=== PATIENT | male | born 1975 | race Caucasian/White ===

== ENCOUNTER 2016-09-01 09:26 | Inpatient (IN) | payer SELFPAY ==
[~2016-09-01] VITALS: Ht 185.4 cm; Wt 89.3 kg
[~2016-09-01 09:26] MED LIST: HYDR-3533 PO
[2016-09-01 09:29] VITALS: BP 125/67; PULSE 89; RESP 18; TEMP 98.3; O2SAT 96
--- NOTE | 2016-09-01 10:16 | PD ---
HPI Chief Complaint: Psychiatric Symptoms Time Seen by Provider: 10:08 Travel History International Travel<30 days: No Contact w/Intl Traveler<30days: No Traveled to known affect area: No History of Present Illness HPI This patient comes to the ER for psychiatric evaluation. He says he has history of bipolar disorder. He says he doesn't feel well psychiatrically. He provides very little information. Some Questions he ignores while others he gives brief responses to. He does not voice any suicidal thoughts. He is not on any medication. He is homeless. Denies alcohol or drug abuse. Symptoms severity is moderate. No alleviating factors. Duration 3 days PFSH Past Medical History Cerebrovascular Accident: No Diabetes: Yes Patient Takes Glucophage: Yes Myocardial Infarction: No Social History Alcohol Use: No Tobacco Use: Yes (ppd) Substance Use: No Allergies-Medications (Allergen,Severity, Reaction): Coded Allergies: *MDRO Multi-Drug Resistant Organism (Unverified Adverse Reaction, Unknown , 09/01/16) MRSA (finger wound) - 08/2014 Reported Meds & Prescriptions Reported Meds & Active Scripts Active No Active Prescriptions or Reported Medications Review of Systems General / Constitutional: No: Fever Eyes: No: Visual changes HENT: No: Headaches Cardiovascular: No: Chest Pain or Discomfort Respiratory: No: Shortness of Breath Gastrointestinal: No: Abdominal Pain Genitourinary: No: Dysuria Musculoskeletal: No: Pain Skin: No Rash Neurologic: No: Weakness Psychiatric: Positive: Disorder of Thought, Mood Disorder, No: Depression Endocrine: No: Polydipsia Hematologic/Lymphatic: No: Easy Bruising Physical Exam Narrative GENERAL: Well-nourished, well-developed patient in no apparent distress. SKIN: Warm and dry. HEAD: Atraumatic. Normocephalic. EYES: Pupils equal and round. No scleral icterus. No injection or drainage. ENT: No nasal bleeding or discharge. Mucous membranes pink and moist. NECK: Trachea midline. No JVD. CARDIOVASCULAR: Regular rate and rhythm. No murmur appreciated. RESPIRATORY: No accessory muscle use. Clear to auscultation. Breath sounds equal bilaterally. GASTROINTESTINAL: Abdomen soft, non-tender, nondistended. Hepatic and splenic margins not palpable. MUSCULOSKELETAL: No obvious deformities. No clubbing. No cyanosis. No edema. NEUROLOGICAL: Awake and alert. No obvious cranial nerve deficits. Motor grossly within normal limits. Normal speech. PSYCHIATRIC: Depressed appearing mood and flat affect; insight and judgment seems weak. Data Data Last Documented VS Vital Signs Date Time Temp Pulse Resp B/P Pulse Ox O2 Delivery O2 Flow Rate FiO2 09/01/16 09:29 98.3 89 18 125/67 96 Room Air Orders Iv Access Insert/Monitor (09/01/16 10:11) Complete Blood Count With Diff (09/01/16 10:11) Basic Metabolic Panel (Bmp) (09/01/16 10:11) Alcohol (Ethanol) (09/01/16 10:11) Drug Screen, Random Urine (09/01/16 10:11) Psych Screen (09/01/16 10:11) Labs Laboratory Tests Test 09/01/16 09:45 White Blood Count 5.6 TH/MM3 Red Blood Count 4.39 MIL/MM3 Hemoglobin 13.9 GM/DL Hematocrit 40.3 % Mean Corpuscular Volume 91.7 FL Mean Corpuscular Hemoglobin 31.8 PG Mean Corpuscular Hemoglobin 34.6 % Concent Red Cell Distribution Width 13.5 % Platelet Count 297 TH/MM3 Mean Platelet Volume 7.6 FL Neutrophils (%) (Auto) 71.1 % Lymphocytes (%) (Auto) 20.7 % Monocytes (%) (Auto) 6.5 % Eosinophils (%) (Auto) 0.9 % Basophils (%) (Auto) 0.8 % Neutrophils # (Auto) 4.0 TH/MM3 Lymphocytes # (Auto) 1.2 TH/MM3 Monocytes # (Auto) 0.4 TH/MM3 Eosinophils # (Auto) 0.0 TH/MM3 Basophils # (Auto) 0.0 TH/MM3 CBC Comment DIFF FINAL Differential Comment Sodium Level 140 MEQ/L Potassium Level 3.8 MEQ/L Chloride Level 104 MEQ/L Carbon Dioxide Level 28.2 MEQ/L Anion Gap 8 MEQ/L Blood Urea Nitrogen 12 MG/DL Creatinine 0.91 MG/DL Estimat Glomerular Filtration 92 ML/MIN Rate Random Glucose 183 MG/DL Calcium Level 8.9 MG/DL Ethyl Alcohol Level LESS THAN 3 MG/DL MDM Medical Decision Making Medical Screen Exam Complete: Yes Emergency Medical Condition: Yes Medical Record Reviewed: Yes Differential Diagnosis Psychosis, depression, adjustment disorder Narrative Course I have reviewed the patient's electronic medical record. Patient desires psychiatric screening so I ordered psychiatric screening. I ordered a medical clearance workup. CBC is normal Metabolic profile is normal Toxicology screen is pending but won't globe changer Alcohol level is negative Patient is is medically stable as can be made. Disposition will be per psychiatry after screening Diagnosis Primary Impression: Bipolar 1 disorder, depressed Scripts No Active Prescriptions or Reported Meds Kushal Evans MD Sep 01, 2016 10:16
[2016-09-01 10:33] LABS: BASOPHIL % 0.8 % (0.0-2.0); EOSINOPHIL % 0.9 % (0.0-4.0); HEMATOCRIT 40.3 % (39.0-51.0); HEMO FLAGS DIFF FINAL; LYMPH % 20.7 % (9.0-44.0); LYMPHOCYTE # 1.2 TH/MM3 (1.0-4.8); MEAN CELL VOLUME 91.7 FL (80.0-100.0); MEAN CORPUSCULAR HEMOGLOBIN 31.8 PG (27.0-34.0); MEAN CORPUSCULAR HGB CONC 34.6 % (32.0-36.0); MONO % 6.5 % (0.0-8.0); NEUT % 71.1 % (16.0-70.0); PLATELET COUNT 297 TH/MM3 (150-450); RED BLOOD COUNT 4.39 MIL/MM3 (4.50-5.90); RED CELL DISTRIBUTION WIDTH 13.5 % (11.6-17.2); WHITE BLOOD COUNT 5.6 TH/MM3 (4.0-11.0)
[2016-09-01 10:53] LABS: ANION GAP 8 MEQ/L (5-15); BICARBONATE 28.2 MEQ/L (21.0-32.0); BLOOD UREA NITROGEN 12 MG/DL (7-18); CHLORIDE 104 MEQ/L (98-107); GLOMERULAR FILTRATION RATE 92 ML/MIN (>89); POTASSIUM 3.8 MEQ/L (3.5-5.1); SODIUM (NA) 140 MEQ/L (136-145)
[2016-09-01 12:33] VITALS: BP 130/76; PULSE 60; RESP 18; TEMP 97.5; O2SAT 98
[2016-09-01 14:38] LABS: AMPHETAMINE, URINE NEG (NEG); BARBITURATES, URINE NEG (NEG); COCAINE, URINE NEG (NEG)
[2016-09-01] MEDS ORDERED: MAGNESIUM HYDROXIDE SUSP 30 ML CUP PO PRN (16:30)
[2016-09-01] MEDS ORDERED: ALUMINUM/MAGNESIUM/SIMETH 30 ML CUP PO PRN (16:30)
[2016-09-01] MEDS ORDERED: LORazepam 2 MG/ML VIAL IM PRN (16:30)
[2016-09-01] MEDS ORDERED: DEXTROSE 50% IN WATER 50 ML VIAL(D50) IV PUSH PRN (16:30)
[2016-09-01] MEDS ORDERED: BENZTROPINE MESYLATE 1 MG TAB PO PRN (16:30)
[2016-09-01] MEDS ORDERED: ACETAMINOPHEN 325 MG TAB PO PRN (16:30)
[2016-09-01] MEDS ORDERED: BENZTROPINE MESYLATE 2 MG/2 ML VIAL IM PRN (16:30)
[2016-09-01] MEDS ORDERED: GLUCAGON 1 MG/ML VIAL OTHER PRN (16:30)
--- NOTE | 2016-09-01 16:33 | HHI.HP ---
Provisional Diagnosis Admission Date 09/01/2016 [place] I. 1. Other psychotic disorder Rule out primary psychotic disorder such as schizophrenia or schizoaffective disorder Rule out mood disorder with psychotic features Mes[place] II. Deferred [place] V. GAF is 30 presently Certification of Person's Competence To Provide Express and Informed Consent I have personally examined Danish Gates , a person being served at [facility] on, Sep 01, 2016 16:20. Express and informed consent means consent voluntarily given in writing, by a competent person, after sufficient explanation and disclosure of the subject matter involved to enable the person to make a knowing and willful decision without any element of force, fraud, deceit, duress, or other form of constraint or coercion. This person is 18 years of age or older, is not now known to be incompetent to consent to treatment with a guardian advocate, and does not have a health care surrogate or proxy currently making medical treatment decisions. I have found this person to be one of the following: [x] Competent to provide express and informed consent, as defined above, for voluntary admission to this facility and is competent to provide express and informed consent for treatment. He/she has the consistent capacity to make well reasoned, willful, and knowing decisions concerning his or her medical or mental health treatment. The person fully and consistently understands the purpose of the admission for examination/placement and is fully capable of personally exercising all rights assured under [place] [] Incompetent to provide express and informed consent to voluntary admission, and this is incompetent to provide express and informed consent to treatment. The person must be transferred to involuntary status and a petition for a guardian advocate filed with the Circuit Court. [] Refusing to provide express and informed consent to voluntary admission but is competent to provide express and informed consent for treatment. The person must be discharged or transferred to involuntary status. Form shall be completed within 24 hours of a person's arrival at the receiving facility and filed in the clinical record of each person: 1. Admitted on a voluntary basis 2. Permitted to provide express and informed consent to his/her own treatment 3. Allowed to transfer from involuntary to voluntary status 4. Prior to permitting a person to consent to his or her own treatment after having been previously found incompetent to consent to treatment. History of Present Illness Capacity: Has Capacity HPI Mr. Gates is a 41-year-old male with a reported history of bipolar disorder who presented voluntarily to the emergency department with complaints of feeling unwell psychiatrically. He was apparently a fairly vague historian for the ED provider. Reviewing the electronic medical record, I see no prior psychiatric contact within our system. Patient seen and examined. Case discussed with nurse in the J-pod. On my examination today, the patient is hypoverbal with slowed thought processes and significant thought blocking. He is fairly alexithymic and is unable to describe his current mood state. He is visibly internally preoccupied and seems to be mouthing words to himself. When I inquire about audiovisual hallucinations he says "I don't know." His eye contact is poor and he is fairly disheveled with dirty fingernails. He says "I'm definitely not thinking well." He denies suicidal or homicidal ideation but seems unreliable to contract for safety in his present state. I can elicit no delusional material including but not limited to paranoia, ideas of reference, thought insertion or withdrawal although he does seem somewhat guarded. Psychiatric interview is somewhat limited because of the patient's thought disorder. Past psychiatric history: Patient reports a history of bipolar disorder. He says that he has not taken psychotropic medications in years. He is not presently under the care of a psychiatrist. He is not sure if he has a history of psychiatric admissions. He says that he has not made a suicide attempt "in a long time." He cannot remember any previous psychotropic medication trials. Review of Systems ROS Limitations: Psychotic, Poor Historian Other Patient does not describe any physical symptoms at this time, but the ROS is limited because of his degree of thought disorder. Past Psych History Psychological trauma history No reported trauma history to me Violence risk - others (6 mos) Unclear but likely lower imminent risk. No known history of violence. Denies homicidal ideation. Violence risk - self (6 mos) Unclear. Concern for self-neglect because of degree of psychiatric decompensation. Patient does appear disheveled. Denies suicidal ideation but is likely unreliable to contract for safety in his present state. Substance Abuse History Drugs/Alcohol past 12 months Patient denies any history of abuse of drugs or alcohol. He says that he smokes "very seldom." Past Family Social History Coded Allergies: *MDRO Multi-Drug Resistant Organism (Unverified Adverse Reaction, Unknown , 09/01/16) MRSA (finger wound) - 08/2014 Past Medical History Patient reports a history of diabetes but says that he hasn't taken medications for this in some time No Active Prescriptions or Reported Meds Family History Patient is unable to provide saying "I'm not sure." Social History Patient unable to provide complete social history because of his degree of thought disorder. From what I can gather he is not presently residing with anyone. He is college educated and studies the [employer] arts. He is not presently working. When I inquire about whether he is on disability he says "I just don't work right now." He is unable to tell me about his marital history, or legal history or other details of his social history. Patient's Strengths (min. 2) In a monitored setting. Verbally fluent. Physical Exam A physical examination was completed in the emergency room by the ER staff and the patient was medically cleared. On my examination today, the patient appears to be in no acute physical distress. No abnormal motor movements noted. No posturing or stereotypies or other signs of catatonia. Steady gait and station. Labs and vital signs reviewed. Vital Signs Vital Signs Date Time Temp Pulse Resp B/P Pulse Ox O2 Delivery O2 Flow Rate FiO2 09/01/16 12:33 97.5 60 18 130/76 98 Room Air Lab Results Item Value Date Time White Blood Count 5.6 TH/MM3 09/01/16 0945 Hemoglobin 13.9 GM/DL 09/01/16 0945 Platelet Count 297 TH/MM3 09/01/16 0945 Sodium Level 140 MEQ/L 09/01/16 0945 Potassium Level 3.8 MEQ/L 09/01/16 0945 Chloride Level 104 MEQ/L 09/01/16 0945 Carbon Dioxide Level 28.2 MEQ/L 09/01/16 0945 Blood Urea Nitrogen 12 MG/DL 09/01/16 0945 Creatinine 0.91 MG/DL 09/01/16 0945 Random Glucose 183 MG/DL H 09/01/16 0945 Urine toxicology and alcohol level negative. Mental Status Examination Patient is in hospital gown. He is somewhat disheveled. He is awake and alert and oriented to person and hospital at least. No abnormal motor movements noted. Speech is slow and halting. Language and fund of knowledge are somewhat difficult to assess but seem at least adequate for age. Patient is unable to describe his mood state and his affect seems fairly flat. Thought process extremely slowed with thought blocking. No mary delusional material. Patient is unsure if he is experiencing audiovisual hallucinations but appears internally preoccupied. He denies suicidal or homicidal ideation but is unreliable to contract for safety in his present state. Insight and judgment are unclear at present. Assessment & Plan Problem List: (1) Psychosis ICD Code: F29 Assessment & Plan This is a 41-year-old male with psychiatric history as detailed above who presents on a voluntary basis to the ED for psychiatric complaints. On my examination today, patient presents with primarily thought disorder symptoms. He has significant thought blocking. He is alexithymic. Although the patient reports a history of bipolar illness, patient's current symptomatology seems more consistent with a primary psychotic disorder. In any event, he has not been on psychotropic medications in some time per his report. He is fairly disheveled and I am concerned that he has not been taking care of himself and so I believe require psychiatric admission at this time for safety, observation and stabilization. --Admit inpatient --Voluntary status --Check a set of LFTs along with a hemoglobin A1c and lipid panel in the morning --For the management of psychotic symptoms, initiate Risperdal 0.5 mg twice daily with plans to titrate. I did discuss the patient's therapeutic options with him at a level appropriate for his degree of present psychiatric impairment. To consider long-acting injectable antipsychotic if adherence seems to be an issue. --Ativan as needed for anxiety, Cogentin as needed for EPS, Benadryl as needed for sleep. --Patient's glucose was somewhat elevated in a nonfasting sample. I will initiate twice daily Accu-Cheks with sliding scale. Diabetic diet. If the hemoglobin A1c is elevated suggestive of ongoing problems with diabetes, we could consider a consult to the hospitalist for management of this problem. --Vitals every shift --Counselor to see and obtain collateral --Disposition planning --Estimated length of stay: 7-9 days Discharge Planning Pending psychiatric stabilization Request HC Surrog/Guard Advoc?: No Problem Qualifiers (1) Psychosis: Qualified Code: F28 - Other psychotic disorder not due to substance or known physiological condition Cholo Delaney MD Sep 01, 2016 16:33
[2016-09-01 16:45] VITALS: BP 130/76
[2016-09-01 20:00] VITALS: BP 117/70; PULSE 59; RESP 18; TEMP 98; O2SAT 100
[2016-09-01] MEDS: LORazepam 1 MG TAB PO PRN (20:32)
[2016-09-01] MEDS: risperiDONE 0.5 MG TAB PO SCH (20:32)
[2016-09-02 06:08] VITALS: BP 118/61; PULSE 65; RESP 18; TEMP 97.7; O2SAT 100
[2016-09-02] MEDS: INSULIN ASPART SUPPLEMENTAL SCALE SQ SCH ×2 (07:00→16:00)
[2016-09-02 08:08] LABS: ALT (GPT) 22 U/L (12-78); AST (GOT) 13 U/L (15-37)
[2016-09-02 08:17] LABS: ALKALINE PHOSPHATASE 70 U/L (45-117); HDL CHOLESTEROL 52.7 MG/DL (40.0-60.0); INDIRECT BILIRUBIN 0.3 MG/DL (0.0-0.8); LDL CHOLESTEROL 62 MG/DL (0-99); TOTAL BILIRUBIN ADULT 0.4 MG/DL (0.2-1.0)
[2016-09-02] MEDS: risperiDONE 0.5 MG TAB PO SCH (09:00)
[2016-09-02] MEDS: REMOVE OLD NICODERM (NICOTINE) PATCH TD SCH (09:00)
[2016-09-02] MEDS: NICOTINE 21 MG/24 HR PATCH T-DERMAL SCH (09:00)
--- NOTE | 2016-09-02 09:52 | HHI.PYPN ---
Subjective Remarks Patient seen and examined with counselor Anita and nursing staff. Chart reviewed. Case discussed with nursing staff. On my examination today, the patient has ongoing thoughts slowing and thought blocking. He does have some improved affective reactivity but remains overall quite flat. He is vague in response to questioning. The most I can get out of him is that "it seems like him having trouble putting my thoughts together." He denies any SI, HI or AVH. Denies side effects from medications. Agreeable to titrating his Risperdal. Review of Systems ROS Limitations: Poor Historian Other No physical complaints today Objective Alert: Yes [place]: Person, Place Mood: Calm Affect: Flat Memory Intact: Comment (not formally assessed) Hallucinations: Other (denies AVH) Delusions: No Delusion Type: Other (no mary delusions) Suicidal: Ideation (denies SI) Homicidal: Ideation (denies HI) Insight/Judgement Fair Remarks Thought disorder as noted above. No motoric abnormalities noted. Speech is slow and monotone. Labs Test 09/01/16 09/02/16 09/02/16 14:09 00:01 07:12 Urine Opiates Screen NEG Urine Barbiturates Screen NEG Urine Amphetamines Screen NEG Urine Benzodiazepines Screen NEG Urine Cocaine Screen NEG Urine Cannabinoids Screen NEG Random Glucose 129 MG/DL Total Bilirubin 0.4 MG/DL Direct Bilirubin 0.1 MG/DL Indirect Bilirubin 0.3 MG/DL Aspartate Amino Transf 13 U/L (AST/SGOT) Alanine Aminotransferase 22 U/L (ALT/SGPT) Alkaline Phosphatase 70 U/L Total Protein 6.5 GM/DL Albumin 3.3 GM/DL Triglycerides Level 52 MG/DL Cholesterol Level 125 MG/DL LDL Cholesterol 62 MG/DL HDL Cholesterol 52.7 MG/DL Cholesterol/HDL Ratio 2.37 RATIO Thyroid Stimulating Hormone 0.666 uIU/ML 3rd Gen Labs reviewed. LFTs unremarkable. TSH within normal limits. Hemoglobin A1c is pending but bedside glucose this morning was not significantly elevated. Vitals/IOs Vital Signs Date Time Temp Pulse Resp B/P Pulse Ox O2 Delivery O2 Flow Rate FiO2 09/02/16 06:08 97.7 65 18 118/61 100 09/01/16 12:33 Room Air Assessment & Plan Problem List: (1) Psychosis ICD Code: F29 Assessment & Plan Titrate Risperdal to target ongoing thought disorder. Awaiting hemoglobin A1c and continue Accu-Cheks and sliding scale. Continue other medications and care as ordered. Justification for Cont. Inpt. Medication changes requiring monitoring. Discharge Planning Pending psychiatric stabilization Request HC Surrog/Guard Advoc?: No Problem Qualifiers (1) Psychosis: Qualified Code: F28 - Other psychotic disorder not due to substance or known physiological condition Cholo Delaney MD Sep 02, 2016 09:52
[2016-09-02 13:38] LABS: HEMOGLOBIN A1b 0.7 %; HEMOGLOBIN Ao 85.8 %; HEMOGLOBIN P3 3.5 %
[2016-09-02 13:47] LABS: HEMOGLOBIN A1b 0.7 %; HEMOGLOBIN F 0.9 %; HEMOGLOBIN LA1C 1.9 %; HEMOGLOBIN P3 3.5 %
[2016-09-02 18:00] VITALS: BP 119/69; PULSE 94; RESP 18; TEMP 98.4; O2SAT 98
[2016-09-02] MEDS: risperiDONE 1 MG TAB PO SCH (20:42)
[2016-09-03 05:53] VITALS: BP 115/65; PULSE 92; RESP 18; TEMP 98.4; O2SAT 98
[2016-09-03] MEDS: risperiDONE 1 MG TAB PO SCH ×2 (08:56→21:16)
[2016-09-03] MEDS: NICOTINE 21 MG/24 HR PATCH T-DERMAL SCH (08:56)
[2016-09-03] MEDS: REMOVE OLD NICODERM (NICOTINE) PATCH TD SCH (08:57)
--- NOTE | 2016-09-03 11:57 | HHI.PYPN ---
Subjective Remarks Patient seen and examined with counselor Anita. Chart reviewed. Case discussed with nursing staff who reports patient continues to display thought blocking. On my examination today, patient presents as quite ambivalent. He doesn't know if he should stay or leave from the hospital. He continues to have significant thought disorder and thought blocking. He continues to feel like "I don't think I'm thinking well." He alludes to experiencing audiovisual hallucinations but notes "I'm scared to say anything about that because I don't want to think I'm crazy and I don't want you to think I'm crazy." He denies side effects from medications. Review of Systems ROS Limitations: Psychotic, Poor Historian Other No reported physical complaints today Objective Alert: Yes [place]: Person, Place Mood: Anxious Affect: Blunted Memory Intact: Comment (not formally assessed) Hallucinations: Other (alludes to some sort of audiovisual hallucinations but won't describe them in detail.) Delusions: No Delusion Type: Other (no mary delusions) Suicidal: Ideation (no SI) Homicidal: Ideation (no HI) Insight/Judgement Fair at best Remarks No hand tremor, no dystonia, no dyskinesia noted. Speech somewhat halting secondary to underlying thought disorder most likely. Labs Test 09/02/16 12:06 Nasal Screen MRSA (PCR) NEGATIVE Labs reviewed. Vitals/IOs Vital Signs Date Time Temp Pulse Resp B/P Pulse Ox O2 Delivery O2 Flow Rate FiO2 09/03/16 05:53 98.4 92 18 115/65 98 09/01/16 12:33 Room Air Intake and Output 09/02/16 09/02/16 09/03/16 08:00 16:00 00:00 Intake Total 360 ml Balance 360 ml Assessment & Plan Problem List: (1) Psychosis ICD Code: F29 Assessment & Plan I detect some signs of improvement patient's clinical condition and that his affect seems somewhat more reactive. He is also somewhat more conversant about his symptoms. I will titrate his Risperdal to target ongoing symptoms of psychosis, which remain significant. Continue other medications and care as ordered. Justification for Cont. Inpt. Ongoing impairments in reality testing. Medication changes requiring monitoring. Risk for decompensation in a less restrictive environment. Discharge Planning Pending psychiatric stabilization Request HC Surrog/Guard Advoc?: No Problem Qualifiers (1) Psychosis: Qualified Code: F28 - Other psychotic disorder not due to substance or known physiological condition Cholo Delaney MD Sep 03, 2016 11:57
[2016-09-03 19:31] VITALS: BP 105/61; PULSE 86; RESP 18; TEMP 98.3; O2SAT 99
[2016-09-03] MEDS: risperiDONE 0.5 MG TAB PO SCH (21:16)
[2016-09-03] MEDS: LORazepam 1 MG TAB PO PRN (21:17)
[2016-09-04 06:01] VITALS: BP 122/77; PULSE 89; RESP 18; TEMP 97.8; O2SAT 100
[2016-09-04] MEDS: risperiDONE 0.5 MG TAB PO SCH ×2 (09:00→21:02)
[2016-09-04] MEDS: risperiDONE 1 MG TAB PO SCH ×2 (09:00→21:02)
[2016-09-04] MEDS: REMOVE OLD NICODERM (NICOTINE) PATCH TD SCH (09:00)
[2016-09-04] MEDS: NICOTINE 21 MG/24 HR PATCH T-DERMAL SCH (09:00)
--- NOTE | 2016-09-04 11:17 | HHI.PYPN ---
Subjective Remarks Patient seen and examined with nurse and counselor. Chart reviewed. Case discussed with nursing staff. On my examination today, the patient seems to be better groomed than in previous days. His thought process seems more linear with less thought blocking although there still some present. Patient himself feels improved and notes that the medication is "good for my heart, body, mind and soul." Denies SI/HI. Still fairly ambivalent about remaining on the unit but agrees finally to stay the weekend. Denies side effects from meds. Review of Systems Other No physical complaints today. Objective Alert: Yes [place]: Person, Place Mood: Calm Affect: Blunted (more reactive) Memory Intact: Comment (not formally assessed) Hallucinations: Other (Denies AVH) Delusions: Yes Delusion Type: Other (possibly some feelings of thought insertion) Suicidal: Ideation (denies SI) Homicidal: Ideation (Denies HI) Insight/Judgement Fair Remarks No motoric abnormalities noted. Labs Labs reviewed. No new labs. Vitals/IOs Vital Signs Date Time Temp Pulse Resp B/P Pulse Ox O2 Delivery O2 Flow Rate FiO2 09/04/16 06:01 97.8 89 18 122/77 100 09/01/16 12:33 Room Air Assessment & Plan Problem List: (1) Psychosis ICD Code: F29 Assessment & Plan Patient seems to be improving with Risperdal. Continue Risperdal as ordered for now. I will plan to titrate over the weekend most likely. We discussed a long-acting injectable like Risperdal Consta, but the patient is little ambivalent about this. I'll revisit this with him. Continue other medications and care as ordered. Justification for Cont. Inpt. Ongoing impairments in reality construction. Medication changes. Discharge Planning Monitor over the weekend Request HC Surrog/Guard Advoc?: No Problem Qualifiers (1) Psychosis: Qualified Code: F28 - Other psychotic disorder not due to substance or known physiological condition Cholo Delaney MD Sep 04, 2016 11:17
[2016-09-04 20:26] VITALS: BP 110/63; PULSE 87; RESP 18; TEMP 98.1; O2SAT 98
[2016-09-04] MEDS: LORazepam 1 MG TAB PO PRN (21:06)
[2016-09-05 06:10] VITALS: BP 116/61; PULSE 114; RESP 20; TEMP 97.2; O2SAT 98
[2016-09-05] MEDS: REMOVE OLD NICODERM (NICOTINE) PATCH TD SCH (09:00)
[2016-09-05] MEDS: NICOTINE 21 MG/24 HR PATCH T-DERMAL SCH (09:00)
[2016-09-05] MEDS: risperiDONE 1 MG TAB PO SCH ×2 (09:24→20:07)
[2016-09-05] MEDS: risperiDONE 0.5 MG TAB PO SCH (09:24)
--- NOTE | 2016-09-05 16:28 | HHI.PYPN ---
Subjective Remarks Patient seen and examined with nursing staff. Chart reviewed. Case discussed with nursing staff who reports patient is somewhat vague and guarded. On my examination today, the patient seems more linear in his thought process. His thought blocking is significantly attenuated. He denies any SI or HI. He denies any side effects from medications but remains ambivalent about a long- acting injectable antipsychotic. No other issues noted. Review of Systems Other No physical complaints today. In particular denies any chest pain, shortness of breath or palpitations associated with his reported tachycardia. Objective Alert: Yes [place]: Person, Place Mood: Calm Affect: Other (more full and reactive today) Memory Intact: Comment (seems intact on clinical exam) Hallucinations: Other (Denies AVH) Delusions: No Delusion Type: Other (no evident delusional material today) Suicidal: Ideation (denies SI) Homicidal: Ideation (denies HI) Insight/Judgement Fair Remarks No abnormal motor movements noted. Thought process improved as noted above. Speech still little bit halting but otherwise within normal limits for rate, tone and volume. Labs Test 09/04/16 17:10 Nasal Screen MRSA (PCR) NEGATIVE Labs reviewed. Vitals/IOs Vital Signs Date Time Temp Pulse Resp B/P Pulse Ox O2 Delivery O2 Flow Rate FiO2 09/05/16 06:10 97.2 114 20 116/61 98 09/01/16 12:33 Room Air Assessment & Plan Problem List: (1) Psychosis ICD Code: F29 Assessment & Plan Titrate Risperdal to target residual psychotic symptoms. Check an EKG for his tachycardia. Continue other medications as ordered. Continue other care as ordered. Justification for Cont. Inpt. Risk for decompensation pending psychiatric stabilization. Discharge Planning Monitor over the weekend. Discharge beginning of next week? Request HC Surrog/Guard Advoc?: No Problem Qualifiers (1) Psychosis: Qualified Code: F28 - Other psychotic disorder not due to substance or known physiological condition Cholo Delaney MD Sep 05, 2016 16:28
[2016-09-05 19:24] VITALS: BP 121/65; PULSE 88; RESP 18; O2SAT 99
[2016-09-05] MEDS: LORazepam 1 MG TAB PO PRN (22:31)
[2016-09-05] MEDS: diphenhydrAMINE HCL 50 MG CAP PO PRN (22:31)
[2016-09-06 05:36] VITALS: BP 138/55; PULSE 105; RESP 17; TEMP 97.7; O2SAT 98
[2016-09-06] MEDS: risperiDONE 1 MG TAB PO SCH ×2 (08:57→21:44)
[2016-09-06] MEDS: NICOTINE 21 MG/24 HR PATCH T-DERMAL SCH (08:58)
[2016-09-06] MEDS: REMOVE OLD NICODERM (NICOTINE) PATCH TD SCH (08:58)
[2016-09-06] MEDS ORDERED: risperiDONE EXT REL INJ 25 MG/2 ML VIAL IM ONE (09:45)
--- NOTE | 2016-09-06 09:49 | HHI.PYPN ---
Subjective Remarks Patient seen and examined with nursing staff. Chart reviewed. Case discussed with nursing staff who reports patient was punching a pillow overnight and received some Ativan as needed with good effect. On my examination today, the patient is calm and pleasant. He says he is "feeling real good, thank you." He does admit to "little bit of anger" overnight but notes that he was "just trying to think for myself." Denies SI or HI. Denies side effects from medications. Remains ambivalent about Risperdal Consta but will consider it. Review of Systems Other No reported physical complaints today Objective Alert: Yes [place]: Person, Place Mood: Calm Affect: Other (fairly full and reactive today) Memory Intact: Comment (intact) Hallucinations: Other (no AVH reported) Delusions: No Delusion Type: Other (no delusions) Suicidal: Ideation (no SI) Homicidal: Ideation (no HI) Insight/Judgement Fair Remarks No hand tremor, no cogwheeling, no dystonias or dyskinesias noted. Thought processes fairly linear today with no real thought blocking that I can discern. Speech is much more fluid and seamless in conversation. Labs Labs reviewed. No new labs. Vitals/IOs Vital Signs Date Time Temp Pulse Resp B/P Pulse Ox O2 Delivery O2 Flow Rate FiO2 09/06/16 05:36 97.7 105 17 138/55 98 Assessment & Plan Problem List: (1) Psychosis ICD Code: F29 Assessment & Plan Offer the patient long-acting injectable Risperdal today. I have explained that he will need to continue to take oral Risperdal for 3 weeks while the injectable takes effect if he decides to excepted. Continue oral Risperdal as ordered. Continue other medications and care as ordered. Justification for Cont. Inpt. Discharge planning. Discharge Planning Monitor overnight Request HC Surrog/Guard Advoc?: No Problem Qualifiers (1) Psychosis: Qualified Code: F28 - Other psychotic disorder not due to substance or known physiological condition Cholo Delaney MD Sep 06, 2016 09:49
--- NOTE | 2016-09-06 13:10 | EKG ---
Date Performed: 09/05/2016 Time Performed: 17:10:21 PTAGE: 41 years EKG: Sinus rhythm INCOMPLETE RIGHT BUNDLE BRANCH BLOCK BORDERLINE ECG NO PREVIOUS TRACING DOCTOR: Ellen Omalley Interpretating Date/Time 09/06/2016 13:08:08
[2016-09-06 19:38] VITALS: BP 112/67; PULSE 94; RESP 18; TEMP 98.9; O2SAT 99
[2016-09-06] MEDS: LORazepam 1 MG TAB PO PRN (22:28)
[2016-09-06] MEDS: diphenhydrAMINE HCL 50 MG CAP PO PRN (22:28)
[2016-09-07 06:12] VITALS: BP 129/76; PULSE 118; RESP 16; TEMP 97.6; O2SAT 98
[2016-09-07] MEDS: risperiDONE 1 MG TAB PO SCH (08:41)
[2016-09-07] MEDS: NICOTINE 21 MG/24 HR PATCH T-DERMAL SCH (08:41)
[2016-09-07] MEDS: REMOVE OLD NICODERM (NICOTINE) PATCH TD SCH (08:41)
[2016-09-07] MEDS ORDERED: RISP25P IM (10:31)
[2016-09-07] MEDS ORDERED: RISP2TAB37 PO (10:31)
--- NOTE | 2016-09-07 10:31 | HHI.DS ---
Psychiatry Discharge Summary Inpatient Psychiatric care?: Yes Advance Directive: No Reason Not Provided: DECLINED Mental Health AdvanceDirective: No Health Care Proxy: No Admission Admission Date Sep 01, 2016 at 16:17 Admission Diagnosis: (1) Psychosis ICD Code: F29 GAF Score: 30 Brief History Mr. Gates is a 41-year-old male with a reported history of bipolar disorder who presented voluntarily to the emergency department with complaints of feeling unwell psychiatrically. He was apparently a fairly vague historian for the ED provider. Reviewing the electronic medical record, I see no prior psychiatric contact within our system. Patient seen and examined. Case discussed with nurse in the J-pod. On my examination today, the patient is hypoverbal with slowed thought processes and significant thought blocking. He is fairly alexithymic and is unable to describe his current mood state. He is visibly internally preoccupied and seems to be mouthing words to himself. When I inquire about audiovisual hallucinations he says "I don't know." His eye contact is poor and he is fairly disheveled with dirty fingernails. He says "I'm definitely not thinking well." He denies suicidal or homicidal ideation but seems unreliable to contract for safety in his present state. I can elicit no delusional material including but not limited to paranoia, ideas of reference, thought insertion or withdrawal although he does seem somewhat guarded. Psychiatric interview is somewhat limited because of the patient's thought disorder. Past psychiatric history: Patient reports a history of bipolar disorder. He says that he has not taken psychotropic medications in years. He is not presently under the care of a psychiatrist. He is not sure if he has a history of psychiatric admissions. He says that he has not made a suicide attempt "in a long time." He cannot remember any previous psychotropic medication trials. Tobacco Use In Past 30 Days: 5 or More Cigarettes/Day Alcohol Use: Monthly or Less Hospital Course Patient was admitted to a locked, inpatient psychiatric unit. Appropriate precautions were in place throughout patient's hospital stay. Patient was seen and examined daily on the unit by psychiatry and also visited by counselor. Medications were adjusted. Patient tolerated medications well without side effects. Patient was started on long-acting injectable Risperdal Consta. Patient had significant improvement in his presenting psychiatric symptomatology. There was no evidence of any suicidality or homicidality on the inpatient unit. Patient remained in good behavioral control and was compliant with medications. On the day of discharge: Case discussed with nursing staff. No problematic behaviors to report. On my examination today, the patient's thought process is more or less completely linear with no residual thought blocking. He is requesting discharge from the inpatient psychiatric unit today. He denies any suicidal or homicidal ideation. He denies any audiovisual hallucinations, nor can I elicit any delusional beliefs. He denies any side effects from medications. I review with him the need for temporary oral supplementation of his Risperdal Consta with teach back to ensure that he understands his medication regimen. He denies any physical complaints. Weighing the acute, chronic, and protective factors and based on the available evidence, I metal sander to a reasonable degree of medical certainty that the patient is at low imminent risk of harm to self or others from a mental illness as defined under the Bro act and his level of function is adequate for outpatient care. Patient has maximized benefit from this inpatient psychiatric hospital stay. He will be discharged today in stable condition with psychiatric follow-up as arranged by counselor. Patient is also to follow-up with primary care. I have counseled the patient regarding warning signs for need to return to the psychiatric emergency room as part of the general safety plan. Results Blood Pressure 129 / 76 Vital Signs Date Time Temp Pulse Resp B/P Pulse Ox O2 Delivery O2 Flow Rate FiO2 09/07/16 06:12 97.6 118 16 129/76 98 Item Value Date Time White Blood Count 5.6 TH/MM3 09/01/16 0945 Hemoglobin 13.9 GM/DL 09/01/16 0945 Platelet Count 297 TH/MM3 09/01/16 0945 Sodium Level 140 MEQ/L 09/01/16 0945 Potassium Level 3.8 MEQ/L 09/01/16 0945 Chloride Level 104 MEQ/L 09/01/16 0945 Carbon Dioxide Level 28.2 MEQ/L 09/01/16 0945 Blood Urea Nitrogen 12 MG/DL 09/01/16 0945 Creatinine 0.91 MG/DL 09/01/16 0945 Hemoglobin A1c 5.6 % 09/02/16 0712 Aspartate Amino Transf (AST/SGOT) 13 U/L L 09/02/16 0712 Alanine Aminotransferase (ALT/SGPT) 22 U/L 09/02/16 0712 Alkaline Phosphatase 70 U/L 09/02/16 0712 Thyroid Stimulating Hormone 3rd Gen 0.666 uIU/ML 09/02/16 0712 Urine Opiates Screen NEG 09/01/16 1409 Urine Barbiturates Screen NEG 09/01/16 1409 Urine Amphetamines Screen NEG 09/01/16 1409 Urine Benzodiazepines Screen NEG 09/01/16 1409 Urine Cocaine Screen NEG 09/01/16 1409 Urine Cannabinoids Screen NEG 09/01/16 1409 Ethyl Alcohol Level LESS THAN 3 MG/DL 09/01/16 0945 Summary of Procedures None done Imaging None done Pending results at discharge: No Medications # of Antipsychotic meds at D/C: 1 Approp Antipsych med options 1 - Minimum of three failed multiple trials of monotherapy. 2 - Documented plan to taper to monotherapy due to previous use of multiple meds OR cross-taper in progress at D/C. 3 - Documentation of augmentation of Clozapine. 4 - Justification other than those listed in allowable values 1-3, document here : Discharge Discharge Date: Sep 07, 2016 Discharge Diagnosis: (1) Psychosis Diagnosis: Principal (stable) ICD Code: F29 GAF on discharge is 60 Mental Status Exam at Disch Patient is casually dressed. He is well groomed. He is awake and alert and oriented 3. No motoric abnormalities noted. No hand tremor, no dystonia, no dyskinesia noted. Speech is within normal limits for rate, tone and volume. Language and fund of knowledge seem adequate and appropriate for age. Mood is fair and affect is somewhat blunted. Thought process linear. No loosening of associations. No evident delusions. Denies audiovisual hallucinations. Denies suicidal or homicidal ideation. Insight and judgment are fair. Pt Condition on Discharge: Stable Discharge Disposition: Discharge Home Discharge Instructions Diet Instructions: As Tolerated, No Restrictions Activities you can perform: Weight Bearing as Rd Scheduled Appointment: Sree Martini Appointment Date: Sep 11, 2016 Appointment Time: 7:30am. New Medications: Risperidone (Risperdal) 2 Mg Tab 2 MG PO BID Take oral Risperdal until you finish this prescription, then stop. Be sure to get your next Risperdal Consta injection as ordered. Mental Health Days 20 Ref 0 TAB Risperidone Inj (Risperdal Consta Inj) 25 Mg Inj 25 MG IM Q14D Next dose of Risperdal Consta due on 1/15/17. Mental Health #1 Ref 0 VIAL Discharge Time <= 30 minutes Discharge/Advance Care Plan Health Problems: (1) Psychosis Goals to promote your health * To prevent worsening of your condition and complications * To maintain your health at the optimal level Directions to meet your goals Take your medications as prescribed Follow your dietary instruction Follow activity as directed Keep your appointments as scheduled Take your immunizations and boosters as scheduled If your symptoms worsen call your PCP, if no PCP go to Urgent Care Center or Emergency Room For 29/03 questions related to your inpatient stay or results of tests pending at discharge, please contact Dr. Cholo Delaney at Smoking is Dangerous to Your Health. Avoid second hand smoking Problem Qualifiers (1) Psychosis: Qualified Code: F28 - Other psychotic disorder not due to substance or known physiological condition Cholo Delaney MD Sep 07, 2016 10:31
[2016-09-07 10:54] VITALS: BP 99/50; PULSE 86
[2016-11-17] MEDS ORDERED: LORazepam 1 MG TAB PO PRN (10:00)
[2016-11-17] MEDS ORDERED: ACETAMINOPHEN 325 MG TAB PO PRN (10:00)
[2016-11-17] MEDS ORDERED: diphenhydrAMINE HCL 50 MG CAP PO PRN (10:00)
[2016-11-17] MEDS ORDERED: risperiDONE 1 MG TAB PO SCH (21:00)
[2016-11-18] MEDS ORDERED: NICOTINE 21 MG/24 HR PATCH T-DERMAL SCH (09:00)
[2016-11-18] MEDS ORDERED: REMOVE OLD PATCH T-DERMAL SCH (09:00)
== END 2016-09-07 12:00 | disposition home or self-care (01) | DRG 885 ==
LOC: NEPE 09:26 → NEDA 16:17 → H270 17:08
PROVIDERS: ADMIT Psychiatry & Neurology Psychiatry; ATTEND Psychiatry & Neurology Psychiatry
DX: F29 Unspecified psychosis not due to a substance or known physiological condition (principal); E11.9 Type 2 diabetes mellitus without complications; F31.9 Bipolar disorder, unspecified; F17.200 Nicotine dependence, unspecified, uncomplicated; Z59.0 Homelessness
CPT/HCPCS: 80048; 80061; 80076; 80301; 80320; 82947; 82948; 83036; 84443; 85025; 87641; 93005; 99284; G0479; J2794; Q0163

== ENCOUNTER 2016-09-08 15:07 | Observation (INO) | payer SELFPAY ==
[~2016-09-08] VITALS: Ht 188 cm; Wt 90.0 kg
[~2016-09-08 15:07] MED LIST changes: -HYDR-3533 PO; +RISP25P IM; +RISP2TAB37 PO
[2016-09-08 15:13] VITALS: BP 147/83; PULSE 108; RESP 14; TEMP 98.1; O2SAT 96
[2016-09-08] MEDS ORDERED: SODIUM CHLORIDE 0.9% FLUSH 5 ML FLUSH IVF PRN (22:00)
[2016-09-08] MEDS ORDERED: SODIUM CHLORID 0.9% 500 ML INJ 500 ML IV ONE ×2 (22:00→22:45)
[2016-09-08 22:08] VITALS: BP 136/84; PULSE 83; PULSE 85; RESP 16; O2SAT 99
--- NOTE | 2016-09-08 22:08 | PD ---
HPI Chief Complaint: Cardiac Complaint Time Seen by Provider: 21:47 Travel History International Travel<30 days: No Contact w/Intl Traveler<30days: No Traveled to known affect area: No History of Present Illness HPI The patient is 41 year old male who presents to the [facility] emergency department with a history of reported chest pain and bilateral biceps pain that began a week ago and has been coming and going. He reports that it makes him feel shaky. He reports "my heart feels like it is not doing well". He reports that he is homeless. He reports that being homeless and staying outside makes his thoughts race and he feels anxious. The patient has a history recently being admitted to the psychiatric service at the end of August with a diagnosis of bipolar disorder. The patient was discharged with a prescription for risperidone. He reports that he does not know where that prescription is. The patient denies taking any medications at all at this time. The patient does have a history of diabetes mellitus as well. He denies having a primary care physician. He denies any prior history of hypertension, hyperlipidemia. He reports that he smokes less than a half a pack of cigarettes per day. He denies any illicit drug use. He denies any prior history of myocardial infarction, congestive heart failure, DVT or PE. The patient reports that the chest pain and arm pain occur together. He reports that he had shortness of breath associated with this. The patient denies any recent fevers, cough, congestion, neck pain, abdominal pain, vomiting, diarrhea, urinary symptoms, or neurologic symptoms. The patient denies any suicidal or homicidal ideations. [facility] Past Medical History Narrative Medical The patient's past medical history is significant for diabetes mellitus, tobacco abuse, bipolar disorder Anxiety: No Depression: No Cerebrovascular Accident: No Endocrine: Yes Genitourinary: No Immune Disorder: No Musculoskeletal: No Neurologic: No Reproductive: No Respiratory: No Myocardial Infarction: No Past Surgical History Narrative Surgical The patient denies any past surgical history. Social History Alcohol Use: No Tobacco Use: Yes (less than one half pack per day.) Substance Use: No Allergies-Medications (Allergen,Severity, Reaction): Coded Allergies: *MDRO Multi-Drug Resistant Organism (Unverified Adverse Reaction, Unknown , Cleared, 09/08/16) MRSA (finger wound) - 08/31/14 MRSA screen negative - 09/02/16 & 09/04/16 Cleared per Infection Control Reported Meds & Prescriptions Reported Meds & Active Scripts Active No Active Prescriptions or Reported Medications Review of Systems General / Constitutional: No: Fever Eyes: No: Visual changes HENT: No: Headaches, Rhinorrhea, Nosebleed Cardiovascular: Positive: Chest Pain or Discomfort, Dyspnea on exertion Respiratory: Positive: Shortness of Breath Gastrointestinal: No: Nausea, Vomiting, Diarrhea, Abdominal Pain Genitourinary: No: Dysuria Musculoskeletal: No: Pain Skin: No Rash Neurologic: No: Weakness, Focal Abnormalities, Change in Mentation, Slurred Speech, Sensory Disturbance Psychiatric: Positive: Anxiety, Disorder of Thought, Mood Disorder, No: Depression, Suicidal Ideations, Substance Abuse, Homicidal Ideation Endocrine: No: Polydipsia Hematologic/Lymphatic: No: Easy Bruising Physical Exam Narrative General: The patient is a well-developed well-nourished male in no acute distress, slightly anxious appearing on examination. Head and Neck exam: Head is normocephalic atraumatic. Eyes: EOMI, pupils are equal round and reactive to light. Nose: Midline septum with pink mucous membranes Mouth: Dentition unremarkable. Moist mucus membranes. Posterior oropharynx is not erythematous. No tonsillar hypertrophy. Uvula midline. Airway patent. Neck: No palpable lymphadenopathy. No nuchal rigidity. No thyromegaly. Cardiovascular: Regular rate and rhythm without murmurs, gallops, or rubs. No pulse deficit to the extremities and simultaneous auscultation and palpation of his radial artery. Lungs: Clear to auscultation bilaterally. No wheezes, rhonchi, or rales. Abdomen: Soft, without tenderness to palpation in all 4 quadrants of the abdomen. No guarding, rebound, or rigidity. Normal bowel sounds are audible. No tenderness on palpation of McBurney's point. Extremities: No clubbing, cyanosis, or edema. 2+ pulses in all 4 extremities. No calf tenderness on palpation. Back: No spinous process tenderness to palpation. No costovertebral angle tenderness to palpation. Neurologic Exam: Grossly nonfocal. Skin Exam: No rash noted. Intact skin that is warm and dry. Data Data Last Documented VS Vital Signs Date Time Temp Pulse Resp B/P Pulse Ox O2 Delivery O2 Flow Rate FiO2 09/08/16 22:08 89 18 96 Room Air 09/08/16 22:08 136/84 09/08/16 15:13 98.1 Orders Electrocardiogram (09/08/16 21:51) B-Type Natriuretic Peptide (09/08/16 21:51) Ckmb (Isoenzyme) Profile (09/08/16 21:51) Complete Blood Count With Diff (09/08/16 21:51) Comprehensive Metabolic Panel (09/08/16 21:51) D-Dimer (09/08/16 21:51) Magnesium (Mg) (09/08/16 21:51) Prothrombin Time / Inr (Pt) (09/08/16 21:51) Act Partial Throm Time (Ptt) (09/08/16 21:51) Troponin I (09/08/16 21:51) Lipase (09/08/16 21:51) Chest, Single Ap (09/08/16 21:51) Ecg Monitoring (09/08/16 21:51) Bilateral Bp Monitoring (09/08/16 21:51) Iv Access Insert/Monitor (09/08/16 21:51) Oximetry (09/08/16 21:51) Oxygen Administration (09/08/16 21:51) Sodium Chloride 0.9% Flush (Ns Flush) (09/08/16 22:00) Sodium Chlorid 0.9% 500 Ml Inj (Ns 500 M (09/08/16 22:00) Risperidone (Risperdal) (09/08/16 22:45) Aspirin Chew (Aspirin Chew) (09/08/16 22:45) Sodium Chlorid 0.9% 500 Ml Inj (Ns 500 M (09/08/16 22:45) CKMB (09/08/16 22:05) CKMB% (09/08/16 22:05) Admit Order (Ed Use Only) (09/08/16 23:44) Labs Laboratory Tests Test 09/08/16 22:05 White Blood Count 7.9 TH/MM3 Red Blood Count 4.46 MIL/MM3 Hemoglobin 14.0 GM/DL Hematocrit 40.7 % Mean Corpuscular Volume 91.2 FL Mean Corpuscular Hemoglobin 31.4 PG Mean Corpuscular Hemoglobin 34.4 % Concent Red Cell Distribution Width 14.0 % Platelet Count 265 TH/MM3 Mean Platelet Volume 8.0 FL Neutrophils (%) (Auto) 53.7 % Lymphocytes (%) (Auto) 33.6 % Monocytes (%) (Auto) 9.3 % Eosinophils (%) (Auto) 2.5 % Basophils (%) (Auto) 0.9 % Neutrophils # (Auto) 4.3 TH/MM3 Lymphocytes # (Auto) 2.7 TH/MM3 Monocytes # (Auto) 0.7 TH/MM3 Eosinophils # (Auto) 0.2 TH/MM3 Basophils # (Auto) 0.1 TH/MM3 CBC Comment DIFF FINAL Differential Comment Sodium Level 139 MEQ/L Potassium Level 4.5 MEQ/L Chloride Level 104 MEQ/L Carbon Dioxide Level 27.0 MEQ/L Anion Gap 8 MEQ/L Blood Urea Nitrogen 13 MG/DL Creatinine 0.85 MG/DL Estimat Glomerular Filtration 99 ML/MIN Rate Random Glucose 107 MG/DL Calcium Level 9.1 MG/DL Magnesium Level 2.0 MG/DL Total Bilirubin 0.5 MG/DL Aspartate Amino Transf 39 U/L (AST/SGOT) Alanine Aminotransferase 39 U/L (ALT/SGPT) Alkaline Phosphatase 76 U/L Total Creatine Kinase 272 U/L Creatine Kinase MB 4.7 NG/ML Troponin I LESS THAN 0.02 NG/ML B-Type Natriuretic Peptide 9 PG/ML Total Protein 6.9 GM/DL Albumin 3.6 GM/DL Lipase 122 U/L Prothrombin Time 10.2 SEC Prothromb Time International 0.9 RATIO Ratio Activated Partial 24.5 SEC Thromboplast Time D-Dimer Quantitative (PE/DVT) 0.21 MG/L [facility] Medical Decision Making Medical Screen Exam Complete: Yes Emergency Medical Condition: Yes Medical Record Reviewed: Yes Interpretation(s) Last Impressions Chest X-Ray 09/08/162150 Signed Impressions: Service Date/Time: Thursday, September 08, 2016 22:01 - CONCLUSION: No acute disease. Adria Hoskins MD Differential Diagnosis Anxiety disorder, versus endocrine disorder, versus acute coronary syndrome, versus acid reflux, versus cardiac arrhythmia Narrative Course During the course of the patients emergency department visit, the patients history, examination, and differential diagnosis were reviewed with the patient. The patient had IV access obtained and blood work sent for analysis. The patient was placed on a extension edger with oximetry and blood pressure monitoring. An EKG was done on arrival. The patient's EKG shows a sinus rhythm heart rate of 77, no acute ST segment elevation or depression. The patient was provided a dose of the risperidone that was recommended by the psychiatrist that saw him recently. The patient was given 2 mg by mouth. The patient was given aspirin 162 mg by mouth 1. The patient was given normal saline a 500 bolus 1. The patients laboratory studies were reviewed and remarkable for a CBC that is unremarkable, CMP is remarkable for glucose of 107, AST 39, CPK and troponin I initially are negative, BNP is 9, lipase 122, d-dimer 0.21, PT PTT unremarkable. Radiology studies were reviewed and remarkable for a chest x-ray that shows no acute abnormality. I discussed the patient's symptoms further with him. The patient is agreeable with the plan to proceed with admission to the chest pain center for rule out serial cardiac enzyme protocol given his history of diabetes and the fact that he does not recall ever having a stress test done previously. The patients results were discussed with the patient, including the plan of care. I explained that further testing and/ or monitoring is indicated based on the patients history, examination, and/ or laboratory findings. Therefore, I recommended admission for additional evaluation. The patient expressed understanding and was agreeable with this plan. The patient was admitted to the hospital in table condition and sent to a bed under the care of the chest pain center. Diagnosis Primary Impression: Chest pain, rule out acute myocardial infarction Admitting Information Admitting Physician Requests: Observation Scripts No Active Prescriptions or Reported Yasmin Badillo MD Sep 08, 2016 22:08
--- NOTE | 2016-09-08 22:10 | RADRPT ---
EXAM DATE/TIME: 09/08/2016 22:01 [place] COMPARISON: No previous studies available for comparison. INDICATIONS : Chest pain and shortness of breath. MEDICAL HISTORY : Diabetes. SURGICAL HISTORY : None. ENCOUNTER: Initial ACUITY: 1 day PAIN SCORE: 5/10 LOCATION: Bilateral chest FINDINGS: A single view of the chest demonstrates the lungs to be symmetrically aerated without evidence of mas s, infiltrate or effusion. The cardiomediastinal contours are unremarkable. Osseous structures are intact. CONCLUSION: No acute disease. Adria Hoskins MD on September 08, 2016 at 22:08 Board Certified Radiologist. This report was verified electronically.
[2016-09-08 22:41] LABS: AUTOMATED NEUTROPHIL # 4.3 TH/MM3 (1.8-7.7); BASOPHIL # 0.1 TH/MM3 (0-0.2); BASOPHIL % 0.9 % (0.0-2.0); EOSINOPHIL # 0.2 TH/MM3 (0-0.4); EOSINOPHIL % 2.5 % (0.0-4.0); HEMATOCRIT 40.7 % (39.0-51.0); HEMO FLAGS DIFF FINAL; LYMPH % 33.6 % (9.0-44.0); LYMPHOCYTE # 2.7 TH/MM3 (1.0-4.8); MEAN CELL VOLUME 91.2 FL (80.0-100.0); MEAN CORPUSCULAR HEMOGLOBIN 31.4 PG (27.0-34.0); MEAN CORPUSCULAR HGB CONC 34.4 % (32.0-36.0); MONO % 9.3 % (0.0-8.0); NEUT % 53.7 % (16.0-70.0); PLATELET COUNT 265 TH/MM3 (150-450); RED BLOOD COUNT 4.46 MIL/MM3 (4.50-5.90); WHITE BLOOD COUNT 7.9 TH/MM3 (4.0-11.0)
[2016-09-08] MEDS ORDERED: ASPIRIN 81 MG CHEW TAB CHEW ONE (22:45)
[2016-09-08] MEDS ORDERED: risperiDONE 1 MG TAB PO ONE (22:45)
[2016-09-08 22:50] LABS: APTT (PATIENT) 24.5 SEC (24.3-30.1); INTERNATIONAL NORMALIZED RATIO 0.9 RATIO; PROTHROMBIN TIME - PATIENT 10.2 SEC (9.8-11.6)
[2016-09-08 23:14] LABS: ALKALINE PHOSPHATASE 76 U/L (45-117); ALT (GPT) 39 U/L (12-78); ANION GAP 8 MEQ/L (5-15); AST (GOT) 39 U/L (15-37); BLOOD UREA NITROGEN 13 MG/DL (7-18); CHLORIDE 104 MEQ/L (98-107); CREATINE KINASE 272 U/L (39-308); GLOMERULAR FILTRATION RATE 99 ML/MIN (>89); SODIUM (NA) 139 MEQ/L (136-145); TOTAL BILIRUBIN ADULT 0.5 MG/DL (0.2-1.0)
[2016-09-08 23:16] LABS: POTASSIUM 4.5 MEQ/L (3.5-5.1)
[2016-09-08 23:28] LABS: CKMB 4.7 NG/ML (0.5-3.6)
[2016-09-09] VITALS (11 sets, daily range): BP systolic 100–135; BP diastolic 55–82; PULSE 54–82; RESP 15–20; TEMP 97.9; O2SAT 98–100
[2016-09-09] MEDS ORDERED: SODIUM CHLORIDE 0.9% FLUSH 5 ML FLUSH IVF PRN (00:30)
[2016-09-09 03:06] LABS: CREATINE KINASE 169 U/L (39-308)
[2016-09-09 03:23] LABS: CKMB 3.2 NG/ML (0.5-3.6)
[2016-09-09 07:46] LABS: CREATINE KINASE 153 U/L (39-308)
[2016-09-09 07:59] LABS: CKMB 2.7 NG/ML (0.5-3.6)
[2016-09-09] MEDS ORDERED: SODIUM CHLORIDE 0.9% FLUSH 5 ML FLUSH IVF SCH (09:00)
--- NOTE | 2016-09-09 12:46 | MH ---
cc: LAISHA RUIZ MD DATE OF ADMISSION: 09/08/2016 CHIEF COMPLAINT Chest pain. HISTORY OF PRESENT ILLNESS This is a 41-year male who presents complaining of trouble breathing. He states, "I've been having trouble breathing for a week". When asked if he had chest pain, the patient stated, "I don't know". Then he states, "yeah I did have chest pain, it hurt all day". When asked what brought it on, he states "I think it may have something to do with being homeless". He is denying chest pain at this time. He at times has been short of breath. He has not been coughing. Denies any nausea, diaphoresis. He denies prior history of CAD. PAST MEDICAL HISTORY Bipolar disorder. Denies hypertension, hyperlipidemia, diabetes and CAD. FAMILY HISTORY He does not know his family history. SOCIAL HISTORY When asked if he smokes cigarettes he states "a little bit". When asked how much he states, "a little bit" and would not give anymore information. Denies alcohol or illicit drugs. PAST SURGICAL HISTORY Noncontributory. ALLERGIES No known drug allergies but has history of MRSA. CURRENT MEDICATIONS Denies at this time. REVIEW OF SYSTEMS GENERAL: Denies fevers or chills. Denies recent illnesses. He really is not forthcoming with his history of his complaints. HEENT: Denies headache, earache, sore throat, difficulty swallowing. CARDIOVASCULAR: Describes the discomfort vaguely as mentioned above. Denies diaphoresis. Denies sensation of heart beating rapidly or irregularly. No syncope. RESPIRATORY: He states he has had some shortness of breath. No inspirational chest discomfort. Denies coughing, wheezing or hemoptysis. GI: Denies nausea, vomiting, diarrhea, abdominal pain or blood in stool. MUSCULOSKELETAL: Denies joint pain or edema. Denies calf pain or edema. NEUROVASCULAR: Denies headache or dizziness. ENDOCRINE: Denies polyuria or polydipsia. HEMATOLOGIC: Denies easy bruising. SKIN: Denies rash or itching. PHYSICAL EXAMINATION VITAL SIGNS: In the emergency department initially included a blood pressure of 147/83, heart rate 108, respirations 14, pulse oximetry 96% on room air and he is afebrile. Most recent vital signs include a blood pressure 108/66, heart rate 67, respirations 16, pulse oximetry 99% on room air and he was afebrile. GENERAL: The patient is seen in the examination room in no apparent distress. He speaks in clear and complete sentences. HEENT: Head is atraumatic, normocephalic. NECK: Supple without lymphadenopathy. Trachea is midline. No JVD or carotid bruit. CARDIOVASCULAR: Regular rate and rhythm without murmur, gallop or rub. RESPIRATORY: Lungs are clear to auscultation bilaterally. No wheezing, rales or rhonchi. No reproducible chest wall discomfort. No use of accessory muscles. GI: Abdomen is nontender, nondistended. Bowel sounds are normal. No guarding or rebound. No obvious pulsatile mass or bruit. No CVA tenderness. Strong femoral pulses bilaterally. MUSCULOSKELETAL: Patient is moving upper and lower extremities freely. No joint tenderness or edema. No calf tenderness or edema, no Homans' sign. Strong pulses in upper and lower extremities. NEUROVASCULAR: The patient is alert and oriented. Cranial nerves II-XII are grossly intact. No focal deficits and speech is clear. SKIN: No rashes and turgor is normal. LABORATORY DATA CBC essentially is unremarkable. Coagulation studies unremarkable including D-dimer is normal at 0.21. Complete metabolic panel essentially unremarkable. Serial cardiac enzymes normal x3. BNP is normal at 9. Lipase normal 122. IMAGING STUDIES Single view chest x-ray read by radiologist as no acute disease. EKGs Sinus rhythm without significant ST segment depression or elevation. ASSESSMENT AND PLAN 1. Chest pain: The patient has had serial cardiac enzymes and EKGs for ruling out purposes. He has been seen by Dr. Laisha Ruiz of cardiology in the chest pain center and will undergo a Lexiscan. If his Lexiscan were to be unremarkable, he will then be discharged home with instructions to followup with local physician. 2. Bipolar disorder: He is noncompliant. He needs to follow up with psychiatrst. 3. Tobacco abuse: The patient has been counseled on the importance of smoking cessation. The patient is stable at this time. He is agreeable to this plan. Dictated by: Julian Allan PA-C MD ESTELLA Ferguson/DILLON /12:00 PM /12:45 PM
--- NOTE | 2016-09-09 13:13 | EKG ---
Date Performed: 09/09/2016 Time Performed: 04:53:00 PTAGE: 41 years EKG: Sinus rhythm WITH SINUS ARRHYTHMIA NORMAL ECG PREVIOUS TRACING : 09/05/2016 17.10 Since previous tracing, no significant change noted DOCTOR: Cholo Ruiz Interpretating Date/Time 09/09/2016 13:13:07
--- NOTE | 2016-09-09 13:16 | EKG ---
Date Performed: 09/09/2016 Time Performed: 02:13:34 PTAGE: 41 years EKG: Sinus rhythm WITH MARKED SINUS ARRHYTHMIA BORDERLINE ECG PREVIOUS TRACING : 09/08/2016 22.13 Since previous tracing, no significant change noted DOCTOR: Cholo Ruiz Interpretating Date/Time 09/09/2016 13:14:55
--- NOTE | 2016-09-09 13:18 | EKG ---
Date Performed: 09/08/2016 Time Performed: 22:13:57 PTAGE: 41 years EKG: Sinus rhythm NORMAL ECG NO PREVIOUS TRACING DOCTOR: Cholo Ruiz Interpretating Date/Time 09/09/2016 13:18:17
[2016-09-09] MEDS ORDERED: REGADENOSON INJ 0.4 MG/5 ML SYR ONE (13:46)
--- NOTE | 2016-09-09 15:11 | RADRPT ---
EXAM DATE/TIME: 09/09/2016 12:57 [facility] COMPARISON: No previous studies available for comparison. INDICATIONS : Chest pain for 1 week. Angina. DOSE: 25.4 mCi Tc99m Myoview at stress. 8.5 mCi Tc99m Myoview at rest. 0.4 mg Lexiscan STRESS SYMPTOMS: Dyspnea. EJECTION FRACTION: 68% MEDICAL HISTORY : Hypertension. Hypercholesterolemia. Diabetes mellitus type 2. SURGICAL HISTORY : None. ENCOUNTER: Initial ACUITY: 1 week PAIN SCALE: 3/10 LOCATION: Midsternal chest TECHNIQUE: The patient underwent pharmacologic stress with infusion of prescribed dose. Continuous ECG tracing was monitored during stress. Gated SPECT imaging was performed after stress and conventional SPECT i maging was performed at rest. The examination was performed on a SPECT/CT scanner, both attenuation and non-corrected datasets were reviewed. FINDINGS: DISTRIBUTION: The maximum perfused segment at stress is in the lateral wall. PERFUSION STUDY: There is a small fixed perfusion defect near the apex, possibly prior small infarct or apical thinnin g. GATED STUDY: There is intact wall motion and thickening without hypokinetic or dyskinetic segments. CONCLUSION: 1. No significant reversibility to suggest ischemia. Fixed perfusion defect near cardiac apex, possib ly apical thinning or remote small prior infarct. 2. Normal ejection fraction of 68%. RISK CATEGORY: Intermediate (1-3% Annual Mortality Rate) Rigoberto Santiago MD on September 09, 2016 at 15:05 Board Certified Radiologist. This report was verified electronically.
--- NOTE | 2016-09-09 15:32 | TR ---
Date Performed: 09/09/2016 Time Performed: 13:27:31 DOCTOR: Cholo Ruiz DRUG LIST: CLINICAL HISTORY: CHEST PAIN REASON FOR TEST: CHEST PAIN REASON FOR ENDING: OBSERVATION: CONCLUSION: Lexiscan stress test was performed under standard four minute protocol. Radionuclid e was injected one minute prior to ending the test. No electrocardiographic abormalities were present to suggest ischemia. Nuclear imaging and interpretation are pending. COMMENTS:
--- NOTE | 2016-09-09 15:33 | HHI.DCPOC ---
Discharge Care Plan Diagnosis: (1) Chest pain (2) Tobacco abuse Goals to Promote Your Health * To prevent worsening of your condition and complications * To maintain your health at the optimal level Directions to Meet Your Goals Take your medications as prescribed Follow your dietary instruction Follow activity as directed Keep your appointments as scheduled Take your immunizations and boosters as scheduled If your symptoms worsen call your PCP, if no PCP go to Urgent Care Center or Emergency Room Smoking is Dangerous to Your Health. Avoid second hand smoke Call the 24-hour hour crisis hotline for domestic abuse at Julian Allan Sep 09, 2016 15:33
== END 2016-09-09 16:52 | disposition home or self-care (01) ==
LOC: NEPC 15:07 → NEDA 23:46 → NEDH 09-09 03:57 → NEPGCP 09-09 11:01
PROVIDERS: ADMIT Internal Medicine Interventional Cardiology; ATTEND Internal Medicine Interventional Cardiology
DX: R07.9 Chest pain, unspecified (principal); Z91.19 Patient's noncompliance with other medical treatment and regimen; F31.9 Bipolar disorder, unspecified; F17.200 Nicotine dependence, unspecified, uncomplicated; M79.622 Pain in left upper arm; M79.621 Pain in right upper arm; Z59.0 Homelessness; E11.9 Type 2 diabetes mellitus without complications; R06.02 Shortness of breath
CPT/HCPCS: 71010; 78452; 80053; 82550; 82552; 83690; 83735; 83880; 84484; 85025; 85379; 85610; 85730; 93005; 93017; 96360; 99285; A9502; G0378; J2785; J7040

== ENCOUNTER 2016-11-16 11:08 | Inpatient (IN) | payer SELFPAY ==
[~2016-11-16] VITALS: Ht 188 cm; Wt 88.6 kg
[2016-11-16 11:10] VITALS: BP 133/77; PULSE 89; RESP 15; TEMP 98.2; O2SAT 98
--- NOTE | 2016-11-16 11:37 | PD ---
HPI Chief Complaint: Suicide Ideation/Attempt Time Seen by Provider: 11:32 Travel History International Travel<30 days: No Contact w/Intl Traveler<30days: No Traveled to known affect area: No History of Present Illness HPI 41-year-old male that presents to the ED for evaluation of depression and suicidal ideation. Per patient he has a chronic history of bipolar disorder. Patient is also homeless. The patient for the past couple days he is feeling depressed and anxious as well as having suicidal thoughts. He denies any alcohol or substance abuse but he does appear to be somewhat reserved with his answering. He does have a history of psychosis in the past and has been here before for similar. His only complaint is that he feels somewhat weak and has some shakes on his body. He is not really specific. He does not appear to have any shakes at this time. He denies any chest pain or shortness of breath. He states having some nonspecific abdominal pain. He denies any diarrhea. No nausea or vomiting. She denies any actual plan to kill himself. He has a history of MRSA. Denies any fevers, chills, sweats. No recent travel. No recent sick contacts. Symptoms have been worsening for the past 2 days. Nothing makes it better or worse. PFSH Past Medical History Bipolar Disorder: Yes Anxiety: Yes Depression: No Heart Rhythm Problems: No Cardiac Catheterization: No Cardiovascular Problems: No High Cholesterol: No Congestive Heart Failure: No Cerebrovascular Accident: No Diabetes: No Endocrine: Yes Genitourinary: No Immune Disorder: No Musculoskeletal: No Neurologic: No Reproductive: No Respiratory: No Myocardial Infarction: No Past Surgical History Coronary Artery Bypass Graft: No Social History Alcohol Use: No Tobacco Use: Yes (less than one half pack per day.) Substance Use: No Allergies-Medications (Allergen,Severity, Reaction): Coded Allergies: *MDRO Multi-Drug Resistant Organism (Unverified Adverse Reaction, Unknown , Cleared, 11/16/16) MRSA (finger wound) - 08/31/14 MRSA screen negative - 09/02/16 & 09/04/16 Cleared per Infection Control Reported Meds & Prescriptions Reported Meds & Active Scripts Active No Active Prescriptions or Reported Medications Review of Systems General / Constitutional: No: Fever, Chills, Weight Gain, Weight Loss, Other Eyes: No: Diploplia, Blurred Vision, Photophobia, Drainage, Redness, Foreign Body Sensation, Pain, Tearing, Blind Spots, Visual changes, Blindness, Other HENT: No: Headaches, Vertigo, Lightheadedness, Sore Throat, Rhinitis, Rhinorrhea, Congestion, Nosebleed, Neck Stiffness, Neck Pain, Masses, Gingival Bleeding, Dental Difficulties, Ear Discharge, Earache, Other Cardiovascular: No: Chest Pain or Discomfort, Palpitations, Irregular Rhythm, Tachycardia, Diaphoresis, Syncope, Dyspnea on exertion, Varicosities, Edema, Cyanosis, Varicosities, Phlebitis, Claudication, Other Respiratory: No: Cough, Shortness of Breath, Wheezing, Sneezing, Orthopnea, Hemoptysis, Stridor, Night Sweats, Pleuritic Pain, Other Gastrointestinal: Positive: Abdominal Pain, No: Nausea, Vomiting, Diarrhea, Hematemesis, Hematochezia, Constipation, Changes in Bowel Habits, Indigestion, Dysphagia, Loss of Appetite, Other Genitourinary: No: Urgency, Frequency, Dysuria, Nocturia, Hematuria, Decreased Urinary Output, Oliguria, Hesitancy, Dribbling, Incontinence, Pelvic Pain, Flank Pain, Dyspareunia, Discharge, Dysmenorrhea, Menorrhagia, Metorrhagia, Vaginal Bleeding, Other Musculoskeletal: No: Myalgias, Arthralgias, Limited ROM, Weakness, Cramping, Edema, Pain, Atrophy, Other Skin: No Rash, No Itching, No Dryness, No Lumps, No Hives, No Change in Pigmentation, No Change in nails, No Alopecia, No Lesions, No Breast Lumps, No Breast Tenderness, No Breast Swelling, No Other Neurologic: Positive: Tremor, No: Weakness, Dizziness, Syncope, Focal Abnormalities, Coordination Problem, Ataxia, Headache, Change in Mentation, Slurred Speech, Paresthesia, Incontinence, Seizures, Sensory Disturbance, Other Psychiatric: Positive: Depression, Suicidal Ideations, Mood Disorder, No: Anxiety, Disorder of Thought, Substance Abuse, Homicidal Ideation, Other Endocrine: No: Heat Intolerance, Cold Intolerance, Polyuria, Polydipsia, Other Hematologic/Lymphatic: No: Easy Bruising, Lymph Node Enlargement, Other Physical Exam Narrative GENERAL: SKIN: Warm and dry. HEAD: Atraumatic. Normocephalic. EYES: Pupils equal and round. No scleral icterus. No injection or drainage. ENT: No nasal bleeding or discharge. Mucous membranes pink and moist. Tongue is midline. No uvular deviation NECK: Trachea midline. No JVD. CARDIOVASCULAR: Regular rate and rhythm. no murmurs, s3, s4. RESPIRATORY: No accessory muscle use. Clear to auscultation. Breath sounds equal bilaterally. GASTROINTESTINAL: Abdomen soft, non-tender, nondistended. Hepatic and splenic margins not palpable. MUSCULOSKELETAL: Extremities without clubbing, cyanosis, or edema. No obvious deformities. Full range of motion of the upper and lower extremities bilaterally. Pupils pulses bilaterally. No lumbar, thoracic, cervical spine tenderness to palpation. NEUROLOGICAL: Awake and alert. No obvious cranial nerve deficits. Motor grossly within normal limits. Five out of 5 muscle strength in the arms and legs. Normal speech. PSYCHIATRIC: depressed mood and affect; insight and judgment normal. Data Data Last Documented VS Vital Signs Date Time Temp Pulse Resp B/P Pulse Ox O2 Delivery O2 Flow Rate FiO2 11/16/16 11:10 98.2 89 15 133/77 98 Orders Complete Blood Count With Diff (11/16/16 11:16) Comprehensive Metabolic Panel (11/16/16 11:16) Psych Screen (11/16/16 11:16) Drug Screen, Random Urine (11/16/16 11:16) Alcohol (Ethanol) (11/16/16 11:16) Labs Laboratory Tests Test 11/16/16 11:37 White Blood Count 7.9 TH/MM3 Red Blood Count 4.06 MIL/MM3 Hemoglobin 13.2 GM/DL Hematocrit 37.6 % Mean Corpuscular Volume 92.7 FL Mean Corpuscular Hemoglobin 32.6 PG Mean Corpuscular Hemoglobin 35.1 % Concent Red Cell Distribution Width 13.0 % Platelet Count 288 TH/MM3 Mean Platelet Volume 7.4 FL Neutrophils (%) (Auto) 71.2 % Lymphocytes (%) (Auto) 17.8 % Monocytes (%) (Auto) 9.0 % Eosinophils (%) (Auto) 1.5 % Basophils (%) (Auto) 0.5 % Neutrophils # (Auto) 5.6 TH/MM3 Lymphocytes # (Auto) 1.4 TH/MM3 Monocytes # (Auto) 0.7 TH/MM3 Eosinophils # (Auto) 0.1 TH/MM3 Basophils # (Auto) 0.0 TH/MM3 CBC Comment DIFF FINAL Differential Comment Sodium Level 141 MEQ/L Potassium Level 3.8 MEQ/L Chloride Level 105 MEQ/L Carbon Dioxide Level 27.7 MEQ/L Anion Gap 8 MEQ/L Blood Urea Nitrogen 14 MG/DL Creatinine 0.87 MG/DL Estimat Glomerular Filtration 97 ML/MIN Rate Random Glucose 91 MG/DL Calcium Level 9.1 MG/DL Total Bilirubin 1.1 MG/DL Aspartate Amino Transf 25 U/L (AST/SGOT) Alanine Aminotransferase 22 U/L (ALT/SGPT) Alkaline Phosphatase 69 U/L Total Protein 7.0 GM/DL Albumin 3.8 GM/DL Ethyl Alcohol Level LESS THAN 3 MG/DL MDM Medical Decision Making Medical Screen Exam Complete: Yes Emergency Medical Condition: Yes Medical Record Reviewed: Yes Interpretation(s) CBC & BMP Diagram 11/16/16 11:37 LFts WNL tox negative Differential Diagnosis Depression versus suicidal ideation versus anxiety versus adjustment disorder versus mood disorder versus bipolar disorder versus schizophrenia versus paranoid disorder versus psychosis versus substance abuse versus alcohol abuse versus alcohol induced psychosis versus homicidality addition versus cutting versus personality disorder Narrative Course 41-year-old male that presents to the ED for evaluation of psych. Patient was properly examined and was found to have some symptoms consistent with appears to be significant illness. No sign of acute medical distress at this time. Labs were drawn. Patient will medically clear pending labs. Okay to be seen by psych. Mental health screening was discussed with the patient. Diagnosis Primary Impression: Bipolar 1 disorder, depressed Scripts No Active Prescriptions or Reported Meds Malachi Trinidad Nov 16, 2016 11:37
[2016-11-16 12:07] LABS: AUTOMATED NEUTROPHIL # 5.6 TH/MM3 (1.8-7.7); BASOPHIL % 0.5 % (0.0-2.0); EOSINOPHIL # 0.1 TH/MM3 (0-0.4); EOSINOPHIL % 1.5 % (0.0-4.0); HEMATOCRIT 37.6 % (39.0-51.0); HEMO FLAGS DIFF FINAL; LYMPH % 17.8 % (9.0-44.0); LYMPHOCYTE # 1.4 TH/MM3 (1.0-4.8); MEAN CELL VOLUME 92.7 FL (80.0-100.0); MEAN CORPUSCULAR HEMOGLOBIN 32.6 PG (27.0-34.0); MEAN CORPUSCULAR HGB CONC 35.1 % (32.0-36.0); NEUT % 71.2 % (16.0-70.0); PLATELET COUNT 288 TH/MM3 (150-450); RED BLOOD COUNT 4.06 MIL/MM3 (4.50-5.90); WHITE BLOOD COUNT 7.9 TH/MM3 (4.0-11.0)
[2016-11-16 12:30] LABS: ALT (GPT) 22 U/L (12-78); ANION GAP 8 MEQ/L (5-15); AST (GOT) 25 U/L (15-37); BICARBONATE 27.7 MEQ/L (21.0-32.0); BLOOD UREA NITROGEN 14 MG/DL (7-18); CHLORIDE 105 MEQ/L (98-107); GLOMERULAR FILTRATION RATE 97 ML/MIN (>89); POTASSIUM 3.8 MEQ/L (3.5-5.1); SODIUM (NA) 141 MEQ/L (136-145)
[2016-11-16 12:32] LABS: ALKALINE PHOSPHATASE 69 U/L (45-117); TOTAL BILIRUBIN ADULT 1.1 MG/DL (0.2-1.0)
[2016-11-16 13:21] LABS: AMPHETAMINE, URINE NEG (NEG); BARBITURATES, URINE NEG (NEG); COCAINE, URINE NEG (NEG)
[2016-11-16 15:08] VITALS: BP 123/70; PULSE 71; RESP 18; TEMP 97.8; O2SAT 92
[2016-11-16 18:44] VITALS: BP 126/70; PULSE 80; RESP 18
[2016-11-16 22:25] VITALS: BP 100/49; PULSE 66; RESP 18; O2SAT 99
[2016-11-17 02:02] VITALS: BP 114/52; PULSE 50; RESP 19; O2SAT 98
--- NOTE | 2016-11-17 09:51 | HHI.HP ---
Provisional Diagnosis Admission Date 11/17/2016 [place] I. 1. Schizophrenia, undifferentiated type Rule out disorganized schizophrenia [place] II. Deferred [place] V. GAF is 30 presently Certification of Person's Competence To Provide Express and Informed Consent I have personally examined Danish Gates , a person being served at [facility] on, Nov 17, 2016 09:51. Express and informed consent means consent voluntarily given in writing, by a competent person, after sufficient explanation and disclosure of the subject matter involved to enable the person to make a knowing and willful decision without any element of force, fraud, deceit, duress, or other form of constraint or coercion. This person is 18 years of age or older, is not now known to be incompetent to consent to treatment with a guardian advocate, and does not have a health care surrogate or proxy currently making medical treatment decisions. I have found this person to be one of the following: [x] Competent to provide express and informed consent, as defined above, for voluntary admission to this facility and is competent to provide express and informed consent for treatment. He/she has the consistent capacity to make well reasoned, willful, and knowing decisions concerning his or her medical or mental health treatment. The person fully and consistently understands the purpose of the admission for examination/placement and is fully capable of personally exercising all rights assured under [place] Incompetent to provide express and informed consent to voluntary admission, and this is incompetent to provide express and informed consent to treatment. The person must be transferred to involuntary status and a petition for a guardian advocate filed with the Circuit Court. [] Refusing to provide express and informed consent to voluntary admission but is competent to provide express and informed consent for treatment. The person must be discharged or transferred to involuntary status. Form shall be completed within 24 hours of a person's arrival at the receiving facility and filed in the clinical record of each person: 1. Admitted on a voluntary basis 2. Permitted to provide express and informed consent to his/her own treatment 3. Allowed to transfer from involuntary to voluntary status 4. Prior to permitting a person to consent to his or her own treatment after having been previously found incompetent to consent to treatment. History of Present Illness Capacity: Has Capacity HPI Mr. Gates is a 41-year-old male with a history of psychosis versus bipolar disorder who presents on a voluntary basis for psychiatric evaluation. He told the ED provider that he was depressed, anxious and suicidal. Reviewing the electronic medical record, I note that the patient was admitted under my care in August of last year, and this was his most recent psychiatric admission within our system. Patient seen and examined. Chart reviewed. Case discussed with nurse in the J- pod. On my examination today, the patient presents as extremely psychomotor slowed with significant thought disorder and thought blocking. Psychiatric interview is complicated by these factors. Patient complains that "I'm not well. I'm just not well." He admits to audiovisual hallucinations "at times that's what I believe." He denies any command auditory hallucinations. He is initially noncommittal regarding suicidal ideation but denies any homicidal ideation. Later, the patient says that he is depressed and has been having suicidal thoughts. No hypomanic or manic symptoms in evidence. Psychiatric interview is limited because of the degree of patient's psychiatric impairment. Past psychiatric history: Patient reports that his most recent psychiatric admission was here at [facility]. He cannot recall if he has any history of suicide attempts. He reports that after leaving the hospital last time he rapidly became nonadherent with his psychotropic medications saying "I just ran out." He does not raise any issues of tolerability or affordability or other rationales for stopping his medication. The patient is not following up psychiatrically on an outpatient basis. Family history: Patient denies any family history of mental illness. Chemical dependency history: Patient denies any abuse of drugs or alcohol. Social history: Patient reports that he is homeless. He is college educated. He has no income and is not working. He denies any legal history. Denies any history. He is single with no children. He denies any access to guns or firearms. Review of Systems ROS Limitations: Psychotic, Poor Historian Other No reported physical complaints but ROS is quite limited because of patient's degree of psychiatric symptomatology. Past Psych History Psychological trauma history No reported trauma history to me Violence risk - others (6 mos) Likely lower risk. Patient denies homicidal ideation. Violence risk - self (6 mos) Indeterminate. Patient apparently articulated suicidal ideation to the ED provider and has described something similar to me although it is quite difficult to discern given his degree of thought disorder. Unclear if the patient has a history of suicide attempts. Substance Abuse History Drugs/Alcohol past 12 months See above Past Family Social History Coded Allergies: *MDRO Multi-Drug Resistant Organism (Unverified Adverse Reaction, Unknown , Cleared, 11/16/16) MRSA (finger wound) - 08/31/14 MRSA screen negative - 09/02/16 & 09/04/16 Cleared per Infection Control Past Medical History See electronic medical record No Active Prescriptions or Reported Meds Patient reports that he has been nonadherent with his psychotropic medications. Family History See above Social History See above Patient's Strengths (min. 2) In a monitored setting. Retain some verbal fluency. Physical Exam ED provider complete a physical examination. On my examination today, the patient appears to be well-nourished and well-developed. He is in no acute physical distress. No motoric abnormalities noted. In particular no posturing or stereotypies or stupor or other signs of catatonia. Labs and vital signs reviewed: Vital Signs Vital Signs Date Time Temp Pulse Resp B/P Pulse Ox O2 Delivery O2 Flow Rate FiO2 11/17/16 02:02 50 19 114/52 98 Room Air 11/16/16 18:44 96 11/16/16 15:08 97.8 Lab Results Item Value Date Time White Blood Count 7.9 TH/MM3 11/16/16 1137 Hemoglobin 13.2 GM/DL 11/16/16 1137 Platelet Count 288 TH/MM3 11/16/16 1137 Sodium Level 141 MEQ/L 11/16/16 1137 Potassium Level 3.8 MEQ/L 11/16/16 1137 Chloride Level 105 MEQ/L 11/16/16 1137 Carbon Dioxide Level 27.7 MEQ/L 11/16/16 1137 Blood Urea Nitrogen 14 MG/DL 11/16/16 1137 Creatinine 0.87 MG/DL 11/16/16 1137 Aspartate Amino Transf (AST/SGOT) 25 U/L 11/16/16 1137 Alanine Aminotransferase (ALT/SGPT) 22 U/L 11/16/16 1137 Alkaline Phosphatase 69 U/L 11/16/16 1137 Urine toxicology negative and alcohol level undetectable. Mental Status Examination Patient is in hospital gown. He is fairly well groomed. He is awake and alert and oriented to person and hospital at least. No abnormal motor movements noted. Speech is extremely slow with long pauses and monotone. Language and fund of knowledge seem at least average. Mood is reportedly depressed and affect is quite flat. Thought process extremely slowed with prominent thought blocking. No loosening of associations. No mary delusional material. Reports vague audiovisual hallucinations. Endorses some ongoing suicidality, but the extent is difficult to ascertain given his thought disorder. No homicidal ideation. Insight and judgment are presently fair. Assessment & Plan Problem List: (1) Psychosis ICD Code: F29 Assessment & Plan This is a 41-year-old as detailed above who presents on a voluntary basis for psychiatric evaluation. Patient once again presents with primarily psychotic symptoms including prominent thought blocking and affective flattening. He did respond well to Risperdal last time but apparently became nonadherent for unclear reasons. Patient is presently severely decompensated from what I suspect is an underlying schizophrenia and requires psychiatric admission at this time for safety, observation and stabilization. Admit inpatient. Voluntary status. Resume Risperdal 1 mg twice daily. Ativan as needed for anxiety, Cogentin as needed for EPS, Benadryl as needed for sleep. Vitals every shift. Counselor to see. Disposition planning. Estimated length of stay: 7-9 days. Discharge Planning Pending psychiatric stabilization. Patient would likely do well in a more structured outpatient environment but unfortunately reports that he has no disability income to put towards, e.g. an assisted living. Request HC Surrog/Guard Advoc?: No Problem Qualifiers (1) Psychosis: Qualified Code: F20.3 - Undifferentiated schizophrenia Cholo Delaney MD Nov 17, 2016 09:51
[2016-11-17] MEDS: risperiDONE 1 MG TAB PO SCH ×2 (10:00→21:08)
[2016-11-17] MEDS ORDERED: ALUMINUM/MAGNESIUM/SIMETH 30 ML CUP PO PRN (10:00)
[2016-11-17] MEDS ORDERED: BENZTROPINE MESYLATE 2 MG/2 ML VIAL IM PRN (10:00)
[2016-11-17] MEDS ORDERED: MAGNESIUM HYDROXIDE SUSP 30 ML CUP PO PRN (10:00)
[2016-11-17] MEDS ORDERED: BENZTROPINE MESYLATE 1 MG TAB PO PRN (10:00)
[2016-11-17] MEDS ORDERED: LORazepam 2 MG/ML VIAL IM PRN (10:00)
[2016-11-17 11:02] VITALS: BP 117/69; PULSE 84; RESP 18; O2SAT 99
[2016-11-17 15:03] VITALS: BP 124/74; PULSE 80; RESP 16; TEMP 98; O2SAT 99
[2016-11-17 17:30] VITALS: BP 115/65; PULSE 79; RESP 18; TEMP 97.3; O2SAT 98
[2016-11-17] MEDS: diphenhydrAMINE HCL 50 MG CAP PO PRN (21:08)
[2016-11-17] MEDS: LORazepam 1 MG TAB PO PRN (21:08)
[2016-11-18 06:14] VITALS: BP 104/65; PULSE 85; RESP 17; TEMP 97.9; O2SAT 95
[2016-11-18 08:19] LABS: ANION GAP 6 MEQ/L (5-15); BICARBONATE 28.1 MEQ/L (21.0-32.0); BLOOD UREA NITROGEN 14 MG/DL (7-18); CHLORIDE 108 MEQ/L (98-107); GLOMERULAR FILTRATION RATE 91 ML/MIN (>89); POTASSIUM 4.1 MEQ/L (3.5-5.1); SODIUM (NA) 142 MEQ/L (136-145)
[2016-11-18 08:24] LABS: HDL CHOLESTEROL 47.8 MG/DL (40.0-60.0); LDL CHOLESTEROL 60 MG/DL (0-99)
[2016-11-18] MEDS: risperiDONE 1 MG TAB PO SCH ×2 (09:00→20:13)
[2016-11-18] MEDS: NICOTINE 21 MG/24 HR PATCH T-DERMAL SCH (09:00)
[2016-11-18] MEDS: REMOVE OLD PATCH T-DERMAL SCH (09:00)
--- NOTE | 2016-11-18 11:19 | HHI.PYPN ---
Subjective Remarks Patient seen and examined. Chart reviewed. Case discussed with nursing staff who reports patient is seclusive to his room. On my examination today, patient presents as a little bit more spontaneous in his responses although his thought process remains extremely slowed with ongoing thought blocking. He is malodorous and disheveled. He denies SI or AVH. Denies side effects from medications. Review of Systems ROS Limitations: Poor Historian Other No physical complaints today Objective Alert: Yes [place]: Person, Place Mood: Calm Affect: Flat Memory Intact: Comment (not formally assessed) Hallucinations: Other (denies AVH but appears internally preoccupied) Delusions: No Delusion Type: Other (no delusions) Suicidal: Ideation (denies SI) Homicidal: Ideation (no HI) Insight/Judgement Fair Remarks No motor abnormalities noted. Thought process as above. Speech slow and somewhat halting. Labs Test 11/18/16 07:40 Sodium Level 142 MEQ/L Potassium Level 4.1 MEQ/L Chloride Level 108 MEQ/L Carbon Dioxide Level 28.1 MEQ/L Anion Gap 6 MEQ/L Blood Urea Nitrogen 14 MG/DL Creatinine 0.92 MG/DL Estimat Glomerular Filtration 91 ML/MIN Rate Random Glucose 86 MG/DL Calcium Level 9.1 MG/DL Triglycerides Level 56 MG/DL Cholesterol Level 119 MG/DL LDL Cholesterol 60 MG/DL HDL Cholesterol 47.8 MG/DL Cholesterol/HDL Ratio 2.48 RATIO BMP and lipid panel unremarkable. Hemoglobin A1c pending. Vitals/IOs Vital Signs Date Time Temp Pulse Resp B/P Pulse Ox O2 Delivery O2 Flow Rate FiO2 11/18/16 06:14 97.9 85 17 104/65 95 11/17/16 11:02 Room Air 11/16/16 18:44 96 Assessment & Plan Problem List: (1) Psychosis ICD Code: F29 Assessment & Plan Titrate Risperdal to target psychosis. Continue to monitor on the inpatient psychiatric unit. Continue other medications and care as ordered. Justification for Cont. Inpt. Impairment in self-care. Impairment in social function. Medication changes in process. High risk for decompensation in a less restrictive environment. Discharge Planning Pending psychiatric stabilization. Anticipate discharge in 5-7 days. Request HC Surrog/Guard Advoc?: No Problem Qualifiers (1) Psychosis: Qualified Code: F20.3 - Undifferentiated schizophrenia Cholo Delaney MD Nov 18, 2016 11:19
[2016-11-18 16:14] LABS: HEMOGLOBIN A1a 0.9 %; HEMOGLOBIN A1b 0.7 %; HEMOGLOBIN Ao 86.2 %; HEMOGLOBIN LA1C 1.8 %; HEMOGLOBIN P3 3.5 %
[2016-11-18 19:14] VITALS: BP 115/61; PULSE 78; RESP 17; TEMP 98; O2SAT 98
[2016-11-18] MEDS: diphenhydrAMINE HCL 50 MG CAP PO PRN (20:12)
[2016-11-18] MEDS: LORazepam 1 MG TAB PO PRN (20:12)
[2016-11-18] MEDS: ACETAMINOPHEN 325 MG TAB PO PRN (20:13)
[2016-11-19 05:37] VITALS: BP 118/69; PULSE 75; RESP 18; TEMP 98.1; O2SAT 100
[2016-11-19] MEDS: risperiDONE 1 MG TAB PO SCH ×2 (08:02→20:12)
[2016-11-19] MEDS: NICOTINE 21 MG/24 HR PATCH T-DERMAL SCH (08:03)
[2016-11-19] MEDS: REMOVE OLD PATCH T-DERMAL SCH (09:00)
--- NOTE | 2016-11-19 11:35 | HHI.PYPN ---
Subjective Remarks Patient seen and examined. Chart reviewed. Case discussed with nursing staff reports that the patient was observed by a peer slapping himself in the head overnight. On my examination today, the patient is a little less psychomotor slowed and easier to engage in interview. He says that "well, I'm not thinking quite right." He is ambivalent about remaining on the inpatient psychiatric unit. He does think he needs to stay because "I want to think clearly." He says that he was slapping his head because, "I was listening to the thoughts of other people. I couldn't put my thoughts together. Thoughts from other people want me to listen to." Denies side effects from medications. Review of Systems ROS Limitations: Poor Historian Other No physical complaints. Objective Alert: Yes [place]: Person, Place Mood: Calm Affect: Blunted Memory Intact: Comment (not formally assessed) Hallucinations: Other (denies AVH but appears internally preoccupied) Delusions: Yes Delusion Type: Other (Apparently some sensation of thought insertion) Suicidal: Ideation (No SI) Homicidal: Ideation (No HI) Insight/Judgement Fair Remarks No abnormal motor movements noted. Speech more spontaneous. Grooming and hygiene fair. No signs of any trauma about the head. Labs Labs reviewed. No new labs. Vitals/IOs Vital Signs Date Time Temp Pulse Resp B/P Pulse Ox O2 Delivery O2 Flow Rate FiO2 11/19/16 05:37 98.1 75 18 118/69 100 11/17/16 11:02 Room Air 11/16/16 18:44 96 Assessment & Plan Problem List: (1) Psychosis ICD Code: F29 Assessment & Plan Patient with ongoing severe decompensation of his psychosis. It seems to me that we are making progress in this case because he is having less thought blocking and is better able to convey his symptomatology to me. For example, we have discovered today that he is experiencing thought insertion. He just titrated up to Risperdal 2 mg twice daily this morning. I plan to continue Risperdal titration as tolerated to effect. Continue to monitor on the inpatient unit. Continue other medications and care as ordered. Justification for Cont. Inpt. Concern for impairment and safety. Impairment in reality construction. Impairment in social function. High risk for decompensation in a less restrictive environment. Discharge Planning Pending psychiatric stabilization. I discussed patient's housing situation outside of the hospital. He is presently homeless but apparently has several family members in the area including the grandmother, a paternal uncle and 3 sisters. He has provided us with contact information for 2 of these sisters: Micheal [phone] and Isabel [phone], and I have asked the counselor to reach out to them to see if they might be able to provide the patient with some stable housing, which I think would significantly reduce his risk for relapse and readmission once he is stable. Request HC Surrog/Guard Advoc?: No Problem Qualifiers (1) Psychosis: Qualified Code: F20.3 - Undifferentiated schizophrenia Cholo Delaney MD Nov 19, 2016 11:35
[2016-11-19 15:15] VITALS: BP 111/72; PULSE 101; RESP 18; TEMP 97.9; O2SAT 99
[2016-11-19] MEDS: LORazepam 1 MG TAB PO PRN (20:13)
[2016-11-20 05:39] VITALS: BP 118/74; PULSE 100; RESP 18; TEMP 97.5; O2SAT 99
[2016-11-20] MEDS: risperiDONE 1 MG TAB PO SCH (07:33)
[2016-11-20] MEDS: NICOTINE 21 MG/24 HR PATCH T-DERMAL SCH (09:00)
[2016-11-20] MEDS: REMOVE OLD PATCH T-DERMAL SCH (09:00)
--- NOTE | 2016-11-20 10:22 | HHI.PYPN ---
Subjective Remarks Patient seen and examined. Chart reviewed. Case discussed with nursing staff who reports patient seems nervous and fretful. He reportedly is unsure if he should leave the hospital or not. On my examination today, the patient remains fairly ambivalent. "Is it ready for me to leave." I try to pro and con this decision with the patient, but all that he will say is, "Not too sure. Just a hunch." He notes he is "trying to sort things out. The thoughts." Patient reports that he believes he is receiving thoughts from other patients telling him to leave the unit. "They think I don't need to be here." Denies side effects from Risperdal and is agreeable to titrating this medication. Review of Systems ROS Limitations: Psychotic, Poor Historian Other No physical complaints today Objective Alert: Yes [place]: Person, Place Mood: Calm Affect: Blunted (tending toward flat.) Memory Intact: Comment (not formally assessed) Hallucinations: Other (Remains int stim) Delusions: Yes Delusion Type: Other (feelings of thought insertion persist) Suicidal: Ideation (None) Homicidal: Ideation (None) Insight/Judgement Fair Remarks No motor abnormalities noted. Thought process slow with ongoing thought blocking. Speech slow and somewhat monotone. Grooming and hygiene fair today. Labs Labs reviewed. No new labs. Vitals/IOs Vital Signs Date Time Temp Pulse Resp B/P Pulse Ox O2 Delivery O2 Flow Rate FiO2 11/20/16 05:39 97.5 100 18 118/74 99 11/17/16 11:02 Room Air 11/16/16 18:44 96 Assessment & Plan Problem List: (1) Psychosis ICD Code: F29 Assessment & Plan Titrate Risperdal to 3mg BID. Weekend rounder, please consider titrating Risperdal to 4mg BID if appropriate or selecting a different agent if the patient does not seem to be responding adequately to Risperdal. Continue to monitor on the inpatient unit. Continue other medications and care as ordered. Justification for Cont. Inpt. Impairment in reality construction. Impairment in social function. Medication changes in process. High risk for decompensation in a less restrictive environment pending psychiatric stabilization. Discharge Planning Pending psychiatric stabilization. Patient will likely require an additional 5- 7 inpatient days for stabilization. Counselor apparently did try to reach out the patient's sisters without success. Request HC Surrog/Guard Advoc?: No Problem Qualifiers (1) Psychosis: Qualified Code: F20.3 - Undifferentiated schizophrenia Cholo Delaney MD Nov 20, 2016 10:22
[2016-11-20 15:30] VITALS: BP 119/65; PULSE 73; RESP 16; TEMP 97.4; O2SAT 99
[2016-11-20] MEDS: LORazepam 1 MG TAB PO PRN (17:50)
[2016-11-20] MEDS: risperiDONE 3 MG TAB PO SCH (20:26)
[2016-11-20] MEDS: diphenhydrAMINE HCL 50 MG CAP PO PRN (20:27)
[2016-11-20] MEDS ORDERED: risperiDONE 3 MG TAB PO SCH (21:00)
[2016-11-21 05:36] VITALS: BP 116/67; PULSE 115; RESP 18; TEMP 97.2; O2SAT 96
[2016-11-21] MEDS: NICOTINE 21 MG/24 HR PATCH T-DERMAL SCH (09:00)
[2016-11-21] MEDS: REMOVE OLD PATCH T-DERMAL SCH (09:00)
[2016-11-21] MEDS: risperiDONE 3 MG TAB PO SCH ×2 (10:13→20:27)
--- NOTE | 2016-11-21 16:55 | HHI.PYPN ---
Subjective Remarks Pt seen and discussed with staff. He reports feeling less agitated and angry with increase in risperdal. He denies medication side effects. He remains quite psychotic with AH. He reports that he is "Not well. Not well. There are thoughts that I'm listening to, that I think are current, but evidence says that they should not be. I can't understand them. It's too much for me to understand." No SI/HI. Objective Alert: Yes [place]: Person, Place Mood: Anxious Affect: Blunted Memory Intact: Comment (not formally assessed) Hallucinations: Auditory Delusions: Yes Delusion Type: Other (thought insertion) Suicidal: Ideation (None) Homicidal: Ideation (None) Insight/Judgement poor Vitals/IOs Vital Signs Date Time Temp Pulse Resp B/P Pulse Ox O2 Delivery O2 Flow Rate FiO2 11/21/16 05:36 97.2 115 18 116/67 96 11/17/16 11:02 Room Air Assessment & Plan Problem List: (1) Psychosis ICD Code: F29 Assessment & Plan Continue current tx plan. Estimated LOS: days Justification for Cont. Inpt. impairments in reality construction. Request HC Surrog/Guard Advoc?: No Problem Qualifiers (1) Psychosis: Qualified Code: F20.3 - Undifferentiated schizophrenia Latoya Blanchard MD Nov 21, 2016 16:55
[2016-11-21 17:30] VITALS: BP 113/56; PULSE 83; RESP 18; TEMP 97.4
[2016-11-21] MEDS: LORazepam 1 MG TAB PO PRN (20:27)
[2016-11-21] MEDS: diphenhydrAMINE HCL 50 MG CAP PO PRN (20:27)
[2016-11-22 05:41] VITALS: BP 104/56; PULSE 63; RESP 17; TEMP 98.1
[2016-11-22] MEDS: NICOTINE 21 MG/24 HR PATCH T-DERMAL SCH (09:00)
[2016-11-22] MEDS: REMOVE OLD PATCH T-DERMAL SCH (09:00)
[2016-11-22] MEDS: risperiDONE 3 MG TAB PO SCH ×2 (09:39→20:38)
--- NOTE | 2016-11-22 13:40 | HHI.PYPN ---
Subjective Remarks Pt seen and discussed with staff. He remains seclusive with poor eye contact and engagement. He is compliant with medications and denies side effects. He state that this morning has been "more quiet" when asked about AH and thought insertion. Self-care is poor. No SI/HI Objective Alert: Yes [place]: Person, Place Mood: Calm Affect: Blunted Memory Intact: Comment (not formally assessed) Hallucinations: Auditory Delusions: Yes Delusion Type: Other (thought insertion) Suicidal: Ideation (None) Homicidal: Ideation (None) Insight/Judgement poor Vitals/IOs Vital Signs Date Time Temp Pulse Resp B/P Pulse Ox O2 Delivery O2 Flow Rate FiO2 11/22/16 05:41 98.1 63 17 104/56 11/21/16 05:36 96 Assessment & Plan Problem List: (1) Psychosis ICD Code: F29 Assessment & Plan Continue current tx plan. Estimated LOS: days Justification for Cont. Inpt. impairments in reality construction and self care Request HC Surrog/Guard Advoc?: No Problem Qualifiers (1) Psychosis: Qualified Code: F20.3 - Undifferentiated schizophrenia Latoya Blanchard MD Nov 22, 2016 13:40
[2016-11-22 17:15] VITALS: BP 115/72; PULSE 79; RESP 18; TEMP 97.9; O2SAT 100
[2016-11-22] MEDS: LORazepam 1 MG TAB PO PRN (20:38)
[2016-11-22] MEDS: diphenhydrAMINE HCL 50 MG CAP PO PRN (20:38)
[2016-11-23 05:58] VITALS: BP 137/80; PULSE 82; RESP 18; TEMP 97.5; O2SAT 100
[2016-11-23] MEDS: REMOVE OLD PATCH T-DERMAL SCH (09:00)
[2016-11-23] MEDS: NICOTINE 21 MG/24 HR PATCH T-DERMAL SCH (09:00)
[2016-11-23] MEDS: risperiDONE 3 MG TAB PO SCH ×2 (09:20→20:57)
--- NOTE | 2016-11-23 12:30 | HHI.PYPN ---
Subjective Remarks Patient seen and examined. Chart reviewed. Case discussed with nurse, counselor and occupational therapist in treatment team. Per nurse, the patient remains depressed and flat. Counselor was able to make contact with one of patient's sisters who related that the family has tried repeatedly to assist of the patient but has been rebuffed and so they have reportedly stopped trying. Occupational therapist reports that the patient attends many of the food- related groups but otherwise has fairly limited participation. On my examination today, the patient reports that he feels "very sad." He endorses feelings of hopelessness and worthlessness but denies any suicidal ideation. He reports that his auditory hallucinations have "calmed down." He continues to experience psychotic ambivalence. He denies side effects from medications. He is agreeable to adding an antidepressant. Review of Systems ROS Limitations: Poor Historian Other Patient has no physical complaints today Objective Alert: Yes [place]: Person, Place Mood: Depressed Affect: Flat Memory Intact: Comment (intact on clinical exam) Hallucinations: Other (denies AVH) Delusions: No Delusion Type: Other (no delusional material today) Suicidal: Ideation (denies suicidal ideation) Homicidal: Ideation (no homicidal ideation) Insight/Judgement Fair Remarks Thought process slowed but linear. No abnormal motor movements noted. Grooming and hygiene fair. Labs Labs reviewed. No new labs. Vitals/IOs Vital Signs Date Time Temp Pulse Resp B/P Pulse Ox O2 Delivery O2 Flow Rate FiO2 11/23/16 05:58 97.5 82 18 137/80 100 Assessment & Plan Problem List: (1) Psychosis ICD Code: F29 Assessment & Plan Add Lexapro 10 mg daily for mood. I reviewed the risks and benefits of this medication with the patient. Continue Risperdal for psychosis. Continue to monitor on the inpatient unit. Continue other medications and care as ordered. Justification for Cont. Inpt. Impairment in social function. Medication changes in process. High risk for decompensation pending psychiatric stabilization. Discharge Planning Pending psychiatric stabilization. Request HC Surrog/Guard Advoc?: No Problem Qualifiers (1) Psychosis: Qualified Code: F20.3 - Undifferentiated schizophrenia Cholo Delaney MD Nov 23, 2016 12:30
[2016-11-23 17:55] VITALS: BP 122/78; PULSE 75; RESP 18; TEMP 98.2; O2SAT 99
[2016-11-23] MEDS: ACETAMINOPHEN 325 MG TAB PO PRN (20:58)
[2016-11-23] MEDS: LORazepam 1 MG TAB PO PRN (20:58)
[2016-11-23] MEDS: diphenhydrAMINE HCL 50 MG CAP PO PRN (20:58)
[2016-11-24 05:34] VITALS: BP 93/54; PULSE 77; RESP 20; TEMP 97.6; O2SAT 99
[2016-11-24 05:41] VITALS: BP 93/44; PULSE 77; RESP 20; TEMP 97.6; O2SAT 99
[2016-11-24] MEDS: risperiDONE 3 MG TAB PO SCH ×2 (08:59→20:55)
[2016-11-24] MEDS: ESCITALOPRAM OXALATE 10 MG TAB PO SCH (08:59)
--- NOTE | 2016-11-24 10:19 | HHI.PYPN ---
Subjective Remarks Patient seen and examined with nurse. Chart reviewed. Case discussed with nursing staff who reports patient remains fairly hypoverbal but is denying suicidal ideation. On my examination today, the patient complains of "not doing a lot of thinking." With further discussion, it seems that he is referring to paucity of thought. He says "when it gets quiet, there doesn't seem to be a lot of thinking." He denies any SI or HI. Denies AVH. Denies side effects from medications. He does feel like the Risperdal is helping and is willing to continue the Lexapro to see if it will help with his mood. Reportedly sleeping well. Review of Systems ROS Limitations: Poor Historian Other No physical complaints today Objective Alert: Yes [place]: Person, Place Mood: Depressed Affect: Flat (remains fairly flat.) Memory Intact: Comment (intact on clinical exam) Hallucinations: Other (denies AVH) Delusions: No Delusion Type: Other (No delusions) Suicidal: Ideation (denies suicidal ideation) Homicidal: Ideation (No HI) Insight/Judgement Fair Remarks No abnormal motor movements noted. TP linear. Speech a little slow. Labs Labs reviewed. No new labs. Vitals/IOs Vital Signs Date Time Temp Pulse Resp B/P Pulse Ox O2 Delivery O2 Flow Rate FiO2 11/24/16 05:41 97.6 77 20 93/44 99 Assessment & Plan Problem List: (1) Psychosis ICD Code: F29 Assessment & Plan Continue Risperdal and Lexapro as ordered. Continue to monitor on the inpatient unit. Continue other medications and care as ordered. Justification for Cont. Inpt. Impairment in social function. Risk for decompensation pending psychiatric stabilization. Discharge Planning Pending psychiatric stabilization. So far per counselor, no family have volunteered to assist the patient on discharge. Request HC Surrog/Guard Advoc?: No Problem Qualifiers (1) Psychosis: Qualified Code: F20.3 - Undifferentiated schizophrenia Cholo Delaney MD Nov 24, 2016 10:19
[2016-11-24 17:52] VITALS: BP 116/73; PULSE 111; RESP 18; TEMP 98.3; O2SAT 97
[2016-11-24] MEDS: LORazepam 1 MG TAB PO PRN (20:55)
[2016-11-24] MEDS: diphenhydrAMINE HCL 50 MG CAP PO PRN (20:55)
[2016-11-25 06:18] VITALS: BP 112/64; PULSE 75; RESP 18; TEMP 98; O2SAT 98
[2016-11-25] MEDS: risperiDONE 3 MG TAB PO SCH ×2 (09:54→20:41)
[2016-11-25] MEDS: ESCITALOPRAM OXALATE 10 MG TAB PO SCH (09:54)
--- NOTE | 2016-11-25 09:54 | HHI.PYPN ---
Subjective Remarks Patient seen and examined. Chart reviewed. Case discussed with nursing staff who reports patient was able to make it outside for fresh air yesterday. On my examination today, the patient is in his room in bed. He says "I'm not doing a lot of thinking. I'm enjoying the quiet." He denies any audiovisual hallucinations. Mood is "I don't know what a mood is." Sleep remains somewhat poor. We discuss options regarding hypnotics and settle on trazodone. Denies side effects from medications. Review of Systems Other No physical complaints today. Objective Alert: Yes [place]: Person, Place Mood: Calm Affect: Flat Memory Intact: Comment (intact on clinical exam) Hallucinations: Other (again denies AVH) Delusions: No Delusion Type: Other (No delusional material) Suicidal: Ideation (denies suicidal ideation) Homicidal: Ideation (no HI) Insight/Judgement Fair Remarks Thought process linear. No abnormal motor movements noted. Grooming and hygiene fair. Labs Labs reviewed. No new labs. Vitals/IOs Vital Signs Date Time Temp Pulse Resp B/P Pulse Ox O2 Delivery O2 Flow Rate FiO2 11/25/16 06:18 98.0 75 18 112/64 98 Assessment & Plan Problem List: (1) Psychosis ICD Code: F29 Assessment & Plan Add trazodone 50mg qHS PRN insomnia. Continue Risperdal and Lexapro as ordered. Could consider titrating Lexapro to 20mg/day tomorrow. Continue other medications and care as ordered. Justification for Cont. Inpt. Final discharge planning Discharge Planning Anticipate discharge in the next 1-2 days. 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
[2016-11-25] MEDS ORDERED: traZODone HCL 50 MG TAB PO PRN (15:15)
[2016-11-25 18:22] VITALS: BP 114/68; PULSE 68; RESP 18; TEMP 98.6; O2SAT 98
[2016-11-26 06:12] VITALS: BP 121/68; PULSE 113; RESP 18; TEMP 97.3; O2SAT 96
[2016-11-26] MEDS: ESCITALOPRAM OXALATE 10 MG TAB PO SCH (08:44)
[2016-11-26] MEDS: risperiDONE 3 MG TAB PO SCH ×2 (08:44→21:00)
--- NOTE | 2016-11-26 13:51 | HHI.PYPN ---
Subjective Remarks Patient seen and examined. Chart reviewed. Case discussed with nursing staff. Patient has been no behavioral problem. On my examination today, patient is laying in bed. He says that he slept fairly well overnight but wishes he had slept a little better. He didn't try the trazodone because he was unaware he had asked for it. Mood is fair but affect remains fairly flat. Denies SI or HI. Denies AVH. Denies side effects from medications. Review of Systems Other No physical complaints today Objective Alert: Yes [place]: Person, Place Mood: Calm Affect: Flat (remains fairly flat) Memory Intact: Comment (intact) Hallucinations: Other (none) Delusions: No Delusion Type: Other (no delusions) Suicidal: Ideation (no SI) Homicidal: Ideation (no HI) Insight/Judgement Fair Remarks No motor abnormalities noted. Thought process linear. Grooming and hygiene are fair. Labs Labs reviewed. No new labs. Vitals/IOs Vital Signs Date Time Temp Pulse Resp B/P Pulse Ox O2 Delivery O2 Flow Rate FiO2 11/26/16 06:12 97.3 113 18 121/68 96 Assessment & Plan Problem List: (1) Psychosis ICD Code: F29 Assessment & Plan I will schedule the trazodone this evening. Titrate Lexapro to 20 mg daily. Continue Risperdal as ordered. I will plan to offer the patient Risperdal long- acting injectable tomorrow. Continue other medications and care as ordered. Justification for Cont. Inpt. Medication changes Discharge Planning I suspect that the patient is approaching his chronic baseline. I have asked that counselor to begin final discharge planning. Anticipate discharge tomorrow or Wednesday at the latest barring some clinical worsening. 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
[2016-11-26 17:25] VITALS: BP 133/70; PULSE 58; RESP 16; TEMP 98.2; O2SAT 97
[2016-11-26] MEDS: traZODone HCL 50 MG TAB PO SCH (21:01)
[2016-11-27 06:17] VITALS: BP 98/60; PULSE 80; RESP 18; TEMP 98.5; O2SAT 99
[2016-11-27] MEDS: risperiDONE 3 MG TAB PO SCH ×2 (08:51→20:55)
[2016-11-27] MEDS: ESCITALOPRAM OXALATE 20 MG TAB PO SCH (08:51)
--- NOTE | 2016-11-27 11:15 | HHI.PYPN ---
Subjective Remarks Patient remained seclusive and has little to say to this physician. He appears to have thought blocking to the extent that he is unable to formulate adequate sentences. Review of Systems ROS Limitations: Clinical Condition Except as stated in HPI: all other systems reviewed are Neg Objective Alert: Yes [place]: Person Mood: Calm Affect: Restricted, Flat (remains fairly flat) Memory Intact: Comment (intact) Hallucinations: Other (none) Delusions: Yes Delusion Type: Other (no delusions) Suicidal: Ideation (no SI) Homicidal: Ideation (no HI) Insight/Judgement Markedly impaired. Vitals/IOs Vital Signs Date Time Temp Pulse Resp B/P Pulse Ox O2 Delivery O2 Flow Rate FiO2 11/27/16 06:17 98.5 80 18 98/60 99 Assessment & Plan Problem List: (1) Schizophrenia, acute undifferentiated ICD Code: F20.3 (2) Psychosis ICD Code: F29 Assessment & Plan Estimated LOS: 7 days patient remains grossly psychotic, seclusive and unable to care for himself. Justification for Cont. Inpt. Unable to care for himself due to thought blocking. Request HC Surrog/Guard Advoc?: No Problem Qualifiers (1) Psychosis: Qualified Code: F20.3 - Undifferentiated schizophrenia Brayden Rodney MD Nov 27, 2016 11:15
[2016-11-27 17:31] VITALS: BP 122/65; PULSE 70; RESP 16; TEMP 98.4; O2SAT 99
[2016-11-27] MEDS: traZODone HCL 50 MG TAB PO SCH (20:56)
[2016-11-28 06:05] VITALS: BP 93/51; PULSE 67; RESP 16; TEMP 97.4; O2SAT 100
[2016-11-28] MEDS: ESCITALOPRAM OXALATE 20 MG TAB PO SCH (09:00)
[2016-11-28] MEDS: risperiDONE 3 MG TAB PO SCH ×2 (09:00→20:37)
--- NOTE | 2016-11-28 18:05 | HHI.PYPN ---
Subjective Remarks Patient was seen and case discussed with nursing. Patient interviewed laying in bed. Describes his mood is good but affect is quite flat. Psychomotor retardation. Patient says she has some feelings that others can read his mind and that his thoughts are not his own. Denies auditory hallucinations. Denies suicidal ideations intent or plan. Denies ideas of reference Objective Alert: Yes [place]: Person, Place Mood: Calm Affect: Flat (remains fairly flat) Memory Intact: Comment (intact) Hallucinations: Other (none) Delusions: Yes Delusion Type: Other (that others can read his thoughts) Suicidal: Ideation (no SI) Homicidal: Ideation (no HI) Insight/Judgement Poor Vitals/IOs Vital Signs Date Time Temp Pulse Resp B/P Pulse Ox O2 Delivery O2 Flow Rate FiO2 11/28/16 06:05 97.4 67 16 93/51 100 Assessment & Plan Problem List: (1) Schizophrenia, acute undifferentiated ICD Code: F20.3 (2) Psychosis ICD Code: F29 Assessment & Plan Continue current treatment plan Justification for Cont. Inpt. 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
[2016-11-28 19:02] VITALS: BP 102/52; PULSE 71; RESP 16; TEMP 98.5; O2SAT 99
[2016-11-28] MEDS: traZODone HCL 50 MG TAB PO SCH (20:37)
[2016-11-29 05:44] VITALS: BP 100/65; PULSE 70; RESP 16; TEMP 97.3; O2SAT 99
[2016-11-29] MEDS: risperiDONE 3 MG TAB PO SCH ×2 (09:02→20:33)
[2016-11-29] MEDS: ESCITALOPRAM OXALATE 20 MG TAB PO SCH (09:02)
--- NOTE | 2016-11-29 15:15 | HHI.PYPN ---
Subjective Remarks Patient was seen and case discussed with nursing. Patient remains largely seclusive to room. He has poverty of thought and is hypoverbal during the interview. Continues to feel depressed with no suicidal ideation intent or plan. He takes back the statements he made yesterday about being able to know what others are thinking. He was asked to write a letter about what he meant. Compliant with medications Objective Alert: Yes [place]: Person, Place, Situation Mood: Calm Affect: Blunted Memory Intact: Comment (intact) Hallucinations: Other (none) Delusions: Yes Delusion Type: Other (that he knows what others are thinking) Suicidal: Ideation (no SI) Homicidal: Ideation (no HI) Insight/Judgement Poor Vitals/IOs Vital Signs Date Time Temp Pulse Resp B/P Pulse Ox O2 Delivery O2 Flow Rate FiO2 11/29/16 05:44 97.3 70 16 100/65 99 Assessment & Plan Problem List: (1) Schizophrenia, acute undifferentiated ICD Code: F20.3 (2) Psychosis ICD Code: F29 Assessment & Plan Continue current treatment plan Justification for Cont. Inpt. Patient will decompensate in a less restrictive setting Request HC Surrog/Guard Advoc?: No Problem Qualifiers (1) Psychosis: Qualified Code: F20.3 - Undifferentiated schizophrenia Elder Pickard DO Nov 29, 2016 15:15
[2016-11-29 18:11] VITALS: BP 127/61; PULSE 95; RESP 18; TEMP 98.2; O2SAT 98
[2016-11-29] MEDS: traZODone HCL 50 MG TAB PO SCH (20:33)
[2016-11-30 06:00] VITALS: BP 106/53; PULSE 66; RESP 16; TEMP 98.2; O2SAT 95
[2016-11-30] MEDS: risperiDONE 3 MG TAB PO SCH (09:03)
[2016-11-30] MEDS: ESCITALOPRAM OXALATE 20 MG TAB PO SCH (09:03)
--- NOTE | 2016-11-30 10:21 | HHI.PYPN ---
Subjective Remarks Patient seen and examined with nurse. Chart reviewed. Case discussed with nursing staff. On my examination today, patient continues to display some thought slowing/though blocking, although nowhere near as bad as at admission. He denies AVH. He denies SI or HI. When I ask about thought alienation, he begins to say, "I think people..." before stopping himself. He does say that " I feel like the people that care about me want me without a stable place to live." Remains extremely ambivalent. Denies side effects from medications. Review of Systems ROS Limitations: Poor Historian Other No physical complaints today. Objective Alert: Yes [place]: Person, Place, Situation Mood: Calm Affect: Blunted (tending toward flat) Memory Intact: Comment (intact) Hallucinations: Other (No AVH) Delusions: Yes Delusion Type: Other (believes he can hear what others are thinking) Suicidal: Ideation (Denies SI) Homicidal: Ideation (Denies HI) Insight/Judgement Poor Remarks No motor abnormalities noted. Thought process as above. Grooming and hygiene fair. Speech somewhat slow. Labs Labs reviewed. No new labs. Vitals/IOs Vital Signs Date Time Temp Pulse Resp B/P Pulse Ox O2 Delivery O2 Flow Rate FiO2 11/30/16 06:00 98.2 66 16 106/53 95 Assessment & Plan Problem List: (1) Schizophrenia, acute undifferentiated ICD Code: F20.3 Assessment & Plan Patient with ongoing thought disorder and positive symptoms of psychosis, incompletely controlled with Risperdal. Patient cannot recall a more efficacious antipsychotic trial. Given that no family member that I am aware of has agreed to assist the patient and given that he has no resources to put toward, e.g. ALICE placement, it is my belief that the patient is not presently stable enough to adequately function in the community with the supports available to him. Given that sleep has been somewhat of an issue, I will cross- taper Risperdal to Zyprexa in hopes that this agent will be more efficacious. For today: Risperdal 2mg BID and Zyprexa 5mg qHS. Continue other psychotropics as ordered. Continue to monitor on the inpatient unit. Continue other medications and care as ordered. Justification for Cont. Inpt. Impairment in reality construction. Impairment in social function. Medication changes in process. High risk for decompensation in a less restrictive environment. Discharge Planning Pending psychiatric stabilization. Request HC Surrog/Guard Advoc?: No Cholo Delaney MD Nov 30, 2016 10:21
[2016-11-30] MEDS ORDERED: traZODone HCL 50 MG TAB PO PRN (14:30)
[2016-11-30] MEDS: risperiDONE 1 MG TAB PO SCH (20:40)
[2016-11-30] MEDS: LORazepam 1 MG TAB PO PRN (20:40)
[2016-11-30] MEDS ORDERED: OLANZapine 5 MG TAB PO SCH (21:00)
[2016-12-01 05:57] VITALS: BP 148/86; PULSE 94; RESP 17; TEMP 97.5; O2SAT 99
[2016-12-01] MEDS: ESCITALOPRAM OXALATE 20 MG TAB PO SCH (09:01)
[2016-12-01] MEDS: risperiDONE 1 MG TAB PO SCH (09:01)
--- NOTE | 2016-12-01 13:27 | HHI.PYPN ---
Subjective Remarks Patient seen and examined. Chart reviewed. Case discussed with nurse, counselor and recreation therapist in treatment team. On my examination today, patient remains somewhat hypoverbal and flat. Thought process remains little slow. He does say that he slept much better with addition of Zyprexa last night. No SI or HI voiced. Denies side effects from medications. Review of Systems Other No physical complaints today Objective Alert: Yes [place]: Person, Place, Situation Mood: Calm Affect: Blunted Memory Intact: Comment (intact) Hallucinations: Other (none) Delusions: No Delusion Type: Other (no delusions elicited today) Suicidal: Ideation (Denies SI) Homicidal: Ideation (Denies HI) Insight/Judgement Fair Remarks No motor abnormalities noted. Thought process linear if a little slow. Labs Labs reviewed. No new labs. Vitals/IOs Vital Signs Date Time Temp Pulse Resp B/P Pulse Ox O2 Delivery O2 Flow Rate FiO2 12/01/16 05:57 97.5 94 17 148/86 99 Assessment & Plan Problem List: (1) Schizophrenia, acute undifferentiated ICD Code: F20.3 Assessment & Plan Continue cross taper of Risperdal to Zyprexa: Zyprexa 10 mg at bedtime this evening and Risperdal 1 mg twice daily. Plan to continue cross taper over succeeding days. Continue other psychotropics as ordered. Continue other medications and care as ordered. Justification for Cont. Inpt. Impairment in reality construction. Medication changes in process. Risk for decompensation pending psychiatric stabilization. Discharge Planning Pending stabilization. Request HC Surrog/Guard Advoc?: No Cholo Delaney MD Dec 01, 2016 13:27
[2016-12-01 18:12] VITALS: BP 114/68; PULSE 108; RESP 18; TEMP 99.2; O2SAT 97
[2016-12-01] MEDS ORDERED: OLANZapine 10 MG TAB PO SCH (21:00)
[2016-12-01] MEDS ORDERED: risperiDONE 1 MG TAB PO SCH (21:00)
[2016-12-02 06:21] VITALS: BP 133/80; PULSE 78; RESP 18; TEMP 97.9; O2SAT 98
[2016-12-02] MEDS: ESCITALOPRAM OXALATE 20 MG TAB PO SCH (09:28)
--- NOTE | 2016-12-02 10:54 | HHI.PYPN ---
Subjective Remarks Patient seen and examined with counselor nurse. Chart reviewed. Case discussed with nursing staff. On my examination today, the patient remains somewhat seclusive to room. He does feel like he is sleeping better. Remains somewhat internally preoccupied. No suicidal or homicidal ideation. Some ongoing feelings of perceiving others thoughts. Denies side effects from medications. Gives counselor permission to contact mother to see if she will assist with disposition. Review of Systems ROS Limitations: Psychotic, Poor Historian Except as stated in HPI: all other systems reviewed are Neg Objective Alert: Yes [place]: Person, Place, Situation Mood: Calm Affect: Blunted (remains fairly blunted) Memory Intact: Comment (intact) Hallucinations: Other (somewhat internally preoccupied but no reported AVH) Delusions: Yes Delusion Type: Other (some feelings of perceiving others thoughts) Suicidal: Ideation (no suicidal ideation) Homicidal: Ideation (no homicidal ideation) Insight/Judgement Fair Remarks No motor abnormalities noted. Grooming and hygiene fair. Labs Labs reviewed. No new labs. Vitals/IOs Vital Signs Date Time Temp Pulse Resp B/P Pulse Ox O2 Delivery O2 Flow Rate FiO2 12/02/16 06:21 97.9 78 18 133/80 98 Assessment & Plan Problem List: (1) Schizophrenia, acute undifferentiated ICD Code: F20.3 Assessment & Plan Complete Risperdal to Zyprexa cross-taper. Discontinue Risperdal and titrate Zyprexa to 15 mg at bedtime. We could consider further titration of Zyprexa to effect as tolerated. Continue Lexapro. Continue to monitor on the inpatient unit. Continue other medications and care as ordered. Justification for Cont. Inpt. Impairment in reality construction. Medication changes in process. I risk for decompensation in a less restrictive environment pending psychiatric stabilization. Discharge Planning Pending psychiatric stabilization. Counselor to reach out the patient's mother to seek her assistance with regards to disposition. My hope would be that the patient would be approaching readiness for discharge by the end of the week barring some clinical worsening. Request HC Surrog/Guard Advoc?: No Cholo Delaney MD Dec 02, 2016 10:53
[2016-12-02] MEDS ORDERED: PILL SPLITTER OTHER PRN (11:30)
[2016-12-02 18:40] VITALS: BP 112/60; PULSE 76; RESP 17; TEMP 97.3; O2SAT 97
[2016-12-02] MEDS: OLANZapine 10 MG TAB PO SCH (20:32)
[2016-12-03 06:16] VITALS: BP 133/78; PULSE 84; RESP 18; TEMP 97.4; O2SAT 97
[2016-12-03] MEDS: ESCITALOPRAM OXALATE 20 MG TAB PO SCH (09:38)
--- NOTE | 2016-12-03 12:07 | HHI.PYPN ---
Subjective Remarks Patient seen and examined with counselor. Chart reviewed. Case discussed with nursing staff. Patient has been a behavioral problem on the unit. On my examination today, I find the patient in his room. He reports that he slept well overnight. He denies feeling overly sedated today. Some paucity of thought. "I just don't have much to say." Mood is stable and not depressed. No suicidal or homicidal ideation. No reported feelings of being able to read others' thoughts. Denies side effects from medications. Review of Systems ROS Limitations: Poor Historian Except as stated in HPI: all other systems reviewed are Neg Objective Alert: Yes [place]: Person, Place, Situation Mood: Calm Affect: Blunted Memory Intact: Comment (intact) Hallucinations: Other (no AVH) Delusions: No Delusion Type: Other (no delusional material elicited today) Suicidal: Ideation (no suicidal ideation) Homicidal: Ideation (no homicidal ideation) Insight/Judgement Fair Remarks No motor abnormalities noted. Thought process linear. Grooming and hygiene fair. Labs Labs reviewed. No new labs. Vitals/IOs Vital Signs Date Time Temp Pulse Resp B/P Pulse Ox O2 Delivery O2 Flow Rate FiO2 12/03/16 06:16 97.4 84 18 133/78 97 Intake and Output 12/02/16 12/02/16 12/03/16 08:00 16:00 00:00 Intake Total 360 ml Balance 360 ml Assessment & Plan Problem List: (1) Schizophrenia, acute undifferentiated ICD Code: F20.3 Assessment & Plan Continue Zyprexa and Lexapro as ordered. Continue other medications and care as ordered. Justification for Cont. Inpt. Final discharge planning. Discharge Planning I believe that the patient is approaching maximal benefit from this inpatient psychiatric hospital stay. Counselor has been in contact with patient's mother who unfortunately is unwilling to assist the patient citing his history per counselor. Monitor overnight. Anticipate discharge tomorrow barring some clinical worsening. Request HC Surrog/Guard Advoc?: No Cholo Delaney MD Dec 03, 2016 12:07
[2016-12-03] MEDS: OLANZapine 10 MG TAB PO SCH (21:38)
[2016-12-04 06:09] VITALS: BP 112/66; PULSE 52; RESP 18; TEMP 97.4; O2SAT 100
[2016-12-04] MEDS: ESCITALOPRAM OXALATE 20 MG TAB PO SCH (09:23)
[2016-12-04] MEDS ORDERED: ESCI20TA PO (13:46)
[2016-12-04] MEDS ORDERED: ZYPR15TA PO (13:46)
--- NOTE | 2016-12-04 13:46 | HHI.DS ---
Psychiatry Discharge Summary Inpatient Psychiatric care?: Yes Advance Directive: No Reason Not Provided: never done Mental Health AdvanceDirective: No Health Care Proxy: No Admission Admission Date Nov 17, 2016 at 09:46 Admission Diagnosis: (1) Schizophrenia, acute undifferentiated ICD Code: F20.3 Brief History Mr. Gates is a 41-year-old male with a history of psychosis versus bipolar disorder who presents on a voluntary basis for psychiatric evaluation. He told the ED provider that he was depressed, anxious and suicidal. Reviewing the electronic medical record, I note that the patient was admitted under my care in August of last year, and this was his most recent psychiatric admission within our system. Patient seen and examined. Chart reviewed. Case discussed with nurse in the J- pod. On my examination today, the patient presents as extremely psychomotor slowed with significant thought disorder and thought blocking. Psychiatric interview is complicated by these factors. Patient complains that "I'm not well. I'm just not well." He admits to audiovisual hallucinations "at times that's what I believe." He denies any command auditory hallucinations. He is initially noncommittal regarding suicidal ideation but denies any homicidal ideation. Later, the patient says that he is depressed and has been having suicidal thoughts. No hypomanic or manic symptoms in evidence. Psychiatric interview is limited because of the degree of patient's psychiatric impairment. Past psychiatric history: Patient reports that his most recent psychiatric admission was here at [facility]. He cannot recall if he has any history of suicide attempts. He reports that after leaving the hospital last time he rapidly became nonadherent with his psychotropic medications saying "I just ran out." He does not raise any issues of tolerability or affordability or other rationales for stopping his medication. The patient is not following up psychiatrically on an outpatient basis. Family history: Patient denies any family history of mental illness. Chemical dependency history: Patient denies any abuse of drugs or alcohol. Social history: Patient reports that he is homeless. He is college educated. He has no income and is not working. He denies any legal history. Denies any history. He is single with no children. He denies any access to guns or firearms. Tobacco Use In Past 30 Days: 5 or More Cigarettes/Day Alcohol Use: Never Hospital Course Patient was admitted to a locked, inpatient psychiatric unit. Appropriate precautions were in place throughout patient's hospital stay. The patient was seen and examined daily on the unit by psychiatry and also visited by counselor. Medications were adjusted. Patient was initially trialed back on Risperdal which was subsequently switched to Zyprexa in order to try to see if we could obtain better control of patient's psychotic symptoms. Lexapro was added for mood. Patient tolerated medications well without side effects. Patient had improvement in his presenting psychiatric symptomatology during the course of his hospital stay. There was no evidence of any suicidality or homicidality on the inpatient unit. The patient remained in good behavioral control and was medication compliant. Counselor made attempts to enlist assistance of family for this patient without success. On the day of discharge : Patient seen and examined. Chart reviewed. Case discussed with nursing staff. No behavioral problems noted. On my examination today, the patient feels that his mood is stable and fair. No depressive or hypomanic/manic symptoms noted. He denies any suicidal or homicidal ideation. Denies any audiovisual hallucinations. He continues to have some feelings of thought diffusion, but these are improved versus admission. No other delusional material noted. Weighing the acute, chronic, and protective factors and based on the available evidence, I psychiatric rn to a reasonable degree of medical certainty that the patient is at low imminent risk of harm to self or others from a mental illness, and his level of function is adequate for outpatient care. The patient has maximized benefit from this inpatient psychiatric hospital stay. He will be discharged today with psychiatric follow-up as arranged by counselor. Patient is also to follow-up with primary care. I have reminded the patient regarding warning signs for need to return to the psychiatric emergency room as part of a general safety plan. Results Blood Pressure 112 / 66 Vital Signs Date Time Temp Pulse Resp B/P Pulse Ox O2 Delivery O2 Flow Rate FiO2 12/04/16 06:09 97.4 52 18 112/66 100 Item Value Date Time White Blood Count 7.9 TH/MM3 11/16/16 1137 Hemoglobin 13.2 GM/DL 11/16/16 1137 Platelet Count 288 TH/MM3 11/16/16 1137 Sodium Level 142 MEQ/L 11/18/16 0740 Potassium Level 4.1 MEQ/L 11/18/16 0740 Chloride Level 108 MEQ/L H 11/18/16 0740 Carbon Dioxide Level 28.1 MEQ/L 11/18/16 0740 Blood Urea Nitrogen 14 MG/DL 11/18/16 0740 Creatinine 0.92 MG/DL 11/18/16 0740 Hemoglobin A1c 5.4 % 11/18/16 0740 Aspartate Amino Transf (AST/SGOT) 25 U/L 11/16/16 1137 Alanine Aminotransferase (ALT/SGPT) 22 U/L 11/16/16 1137 Alkaline Phosphatase 69 U/L 11/16/16 1137 Toxicology negative and alcohol level undetectable. Summary of Procedures None done Imaging None done Pending results at discharge: No Medications # of Antipsychotic meds at D/C: 1 Approp Antipsych med options 1 - Minimum of three failed multiple trials of monotherapy. 2 - Documented plan to taper to monotherapy due to previous use of multiple meds OR cross-taper in progress at D/C. 3 - Documentation of augmentation of Clozapine. 4 - Justification other than those listed in allowable values 1-3, document here : Discharge Discharge Date: Dec 04, 2016 Discharge Diagnosis: (1) Schizophrenia, acute undifferentiated Diagnosis: Principal (improved versus admission) ICD Code: F20.3 GAF on discharge is 55. Mental Status Exam at Disch Patient is in hospital gown. He is fairly well groomed and maintaining basic hygiene. He is awake and alert and oriented to person, place and approximate date. No evidence of delirium. No abnormal motor movements noted. Speech is within normal limits for rate, tone and volume. Language and fund of knowledge seem average. Mood is fair and affect is blunted. Thought processes linear. No loosening of associations. Some ongoing feelings of thought diffusion but no other delusional material. Denies audiovisual hallucinations. Denies suicidal or homicidal ideation. Insight and judgment are fair. Pt Condition on Discharge: Stable Discharge Disposition: Discharge Home Discharge Instructions Diet Instructions: As Tolerated, No Restrictions Activities you can perform: Weight Bearing as Rd Scheduled Appointment: Sree Alejandre Act Appointment Date: Dec 10, 2016 Appointment Time: 7:30am New Medications: Olanzapine (Zyprexa) 15 Mg Tab 15 MG PO HS Mental Health Days 15 Ref 1 TAB Escitalopram (Escitalopram) 20 Mg Tab 20 MG PO DAILY Mental Health Days 15 Ref 1 TAB Discharge Time <= 30 minutes Discharge/Advance Care Plan Health Problems: (1) Schizophrenia, acute undifferentiated Goals to promote your health * To prevent worsening of your condition and complications * To maintain your health at the optimal level Directions to meet your goals Take your medications as prescribed Follow your dietary instruction Follow activity as directed Keep your appointments as scheduled Take your immunizations and boosters as scheduled If your symptoms worsen call your PCP, if no PCP go to Urgent Care Center or Emergency Room For 29/03 questions related to your inpatient stay or results of tests pending at discharge, please contact Dr. Cholo Delaney at Smoking is Dangerous to Your Health. Avoid second hand smoking Cholo Delaney MD Dec 04, 2016 13:46
== END 2016-12-04 16:30 | disposition home or self-care (01) | DRG 885 ==
LOC: NEPC 11:08 → NEDA 11-17 09:46 → H270 11-17 11:05
PROVIDERS: ADMIT Psychiatry & Neurology Psychiatry; ATTEND Psychiatry & Neurology Psychiatry
DX: F20.3 Undifferentiated schizophrenia (principal); R45.851 Suicidal ideations; F17.210 Nicotine dependence, cigarettes, uncomplicated; Z59.0 Homelessness
CPT/HCPCS: 80048; 80053; 80061; 80307; 83036; 85025; 99285; Q0163

== ENCOUNTER 2017-01-14 14:15 | Emergency (ER) | payer SELFPAY ==
[~2017-01-14] VITALS: Ht 188 cm; Wt 84.0 kg
[~2017-01-14 14:15] MED LIST changes: +ESCI20TA PO; -RISP25P IM; -RISP2TAB37 PO; +ZYPR15TA PO
[2017-01-14 14:25] VITALS: BP 120/83; PULSE 80; RESP 20; TEMP 98.4; O2SAT 98
--- NOTE | 2017-01-14 14:54 | PD ---
Physical Exam Date Seen by Provider: January 14, 2017 Time Seen by Provider: 14:52 Narrative Pt presents with abd pain for the last 3-4 months. Pain is in the middle lower abdomen. No nausea or vomiting.Pain comes and goes, no exacerbating or alleviating factors. VSS, awaiting bed placement. Data Data Last Documented VS Vital Signs Date Time Temp Pulse Resp B/P Pulse Ox O2 Delivery O2 Flow Rate FiO2 01/14/17 14:25 98.4 80 20 120/83 98 Room Air [facility] Supervised Visit with ROMY: Hailey Zee January 14, 2017 14:54
== END 2017-01-14 16:10 | disposition left against medical advice (07) ==
LOC: NED 14:15
DX: Z53.21 Procedure and treatment not carried out due to patient leaving prior to being seen by health care provider (principal)
CPT/HCPCS: 99281

== ENCOUNTER 2017-01-14 17:11 | Emergency (ER) | payer SELFPAY ==
[~2017-01-14] VITALS: Ht 188 cm; Wt 84.0 kg
[2017-01-14 17:12] VITALS: BP 127/79; PULSE 82; RESP 20; TEMP 98.1; O2SAT 96
--- NOTE | 2017-01-14 18:04 | PD ---
Physical Exam Date Seen by Provider: January 14, 2017 Time Seen by Provider: 18:03 Narrative Pt is a 41 year old male presenting to the ED for evaluation of abdominal pain. No n/v. Symptoms have been ongoing for several months. No exacerbating or alleviating factors. Pt reports feeling depress but not suicidal. VSS, awaiting bed placement. Data Data Last Documented VS Vital Signs Date Time Temp Pulse Resp B/P Pulse Ox O2 Delivery O2 Flow Rate FiO2 01/14/17 17:12 98.1 82 20 127/79 96 Room Air [facility] Supervised Visit with ROMY: Hailey Zee January 14, 2017 18:04
== END 2017-01-14 21:14 | disposition left against medical advice (07) ==
LOC: NED 17:11
DX: Z53.21 Procedure and treatment not carried out due to patient leaving prior to being seen by health care provider (principal)
CPT/HCPCS: 99281